=== PATIENT | male | born 1965 | race Caucasian/White ===

== ENCOUNTER 2020-06-21 13:20 | Emergency (ER) | payer MEDICAID, SELFPAY ==
[2020-06-21 13:34] VITALS: BP 138/84; PULSE 92; RESP 18; TEMP 36.6; O2SAT 98; BMI 36.2
--- NOTE | 2020-06-21 16:22 | CT_ITS ---
EXAMINATION: CT BRAIN WITHOUT CONTRAST. CLINICAL INFORMATION: Dizziness with history of CVA. COMPARISON: CT brain and CTA head and neck 04/20/2019 TECHNIQUE: 5 mm thin thin axial and reformatted 2 mm thin sagittal and coronal images of brain were obtained. DLP 756. FINDINGS: There is no acute intra-axial, extra-axial bleed, masses or midline shift. There is encephalomalacia/old infarct left posterior centrum semiovale and insular cortex left temporal lobe and left external capsule. There is no acute infarct in evolution at this time. 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 Both lateral ventricles are moderately enlarged as well with moderate prominence of cortical sulci consistent with volume loss. A prominent cisterna magna is noted in the posterior fossa. Bone windows reveal no calvarial abnormality. No scalp soft tissue abnormality seen. Bilateral paranasal sinuses and mastoid air cells are well-aerated. CT/CT head/brain wo con IMPRESSION: No acute intracranial bleed or infarct. Old left insular and left posterior centrum semiovale infarct/encephalomalacia. Age-appropriate atrophy.
--- NOTE | 2020-06-21 16:34 | ECG_ITS ---
Test Reason : DIZZINESS Blood Pressure : / mmHG Vent. Rate : 076 BPM Atrial Rate : 076 BPM P-R Int : 174 ms QRS Dur : 084 ms QT Int : 376 ms P-R-T Axes : 029 -01 046 degrees QTc Int : 423 ms Artifact in tracing Normal sinus rhythm cannot assess inferior leads Otherwise unremarkable When compared with ECG of 20-APR-2019 13:32, No significant changes seen Referred By: Jet Pham Electronically Signed By:BLOSSOM RUIZ
--- NOTE | 2020-06-21 16:35 | ED_ITS ---
HPI - Dizziness General Chief Complaint: Dizziness Stated Complaint: Dizziness Time Seen by Provider: 06/21/20 16:14 Source: patient and old records reviewed Mode of arrival: ambulatory Limitations: no limitations History of Present Illness HPI Narrative: Patient with history of CVA in 2019 on baby aspirin noticed omi terrazas onset of vertigo since yesterday evening lasted for few minutes got better again today restarted having dizziness also has tinnitus on his left side no focal weakness no tremors no headache seen his primary care doctor was started on meclizine MD elicited complaint: dizziness Pertinent past history: stroke Onset (ago): day(s) (1) Timing: sudden onset Severity: mild Description: sense of movement, room spinning and off-balance History of similar symptoms: No Exacerbating factors: movement/ambulation and change in body position Relieving factors: remaining still Associated symptoms: denies other symptoms Related Data Allergies Allergy/AdvReac Type Severity Reaction Status Date / Time No Known Allergies Allergy Unverified 03/28/20 15:14 [No Known Allergies*] Review of Systems Review of Systems: REVIEW OF SYSTEMS: Pertinent positives and negatives are stated above in the history. GEN: no fevers, chills, fatigue HEENT: no nasal congestion, sore throat, ear pain NEURO: no headache, dizziness, focal weakness PULM: no cough, shortness of breath CV: no chest pain, palpitations, LE edema ABD: no abdominal pain, nausea, vomiting, diarrhea : no dysuria, urgency, frequency SKIN: no rash ROS otherwise negative x 10 PMFSH Past Medical History Medical History CVA (cerebral vascular accident) Surgical History History of CEA (carotid endarterectomy) Social History Social History Alcohol intake: current Alcohol intake frequency: a few times a month Smoking Status: Never smoker Use of substances other than those prescribed or required for medical reasons: No Advance Directives: No Advance Directives Information Provided: Yes Physical Exam Vital Signs: Vital Signs: Last Vital Signs Temp 98 F 06/21/20 13:34 Pulse 82 06/21/20 16:45 Resp 16 06/21/20 16:45 BP 127/83 06/21/20 16:45 Pulse Ox 98 06/21/20 16:45 Body Mass Index 36.2 VITAL SIGNS: Reviewed. GENERAL: Well developed, well nourished, in no acute distress. HEAD: Normocephalic/atraumatic, EYES: PERRLA No pallor/icterus noted OROPHARYNX: Oral mucosa moist no oral lesions NECK: Supple, no adenopathy LUNGS: Normal breath sounds. No adventitious sounds or accessory muscle use CARDIOVASCULAR: Regular rate and rhythm without noted murmurs, no JVD or lower extremity edema. ABDOMEN: Soft, non-tender, non-distended with normal bowel sounds. No rigidity. No guarding. No palpable masses or hernias noted MUSCULOSKELETAL: No tenderness, deformities, EXTREMITIES: No cyanosis or edema. SKIN: no rashes, ulcerations, jaundice, pallor, or petechiae NEUROLOGIC: Alert and oriented x 3. Strength and sensation to light touch were grossly intact normal speech no nystagmus cerebellar signs are absent MDM - Dizziness MDM Narrative Medical decision making narrative: Patient feeling much better now ambulatory in the ER already on meclizine at home CT scan is negative clinically patient has peripheral vertigo which is benign. Will discharge with advised patient to continue meclizine follow with PCP Differential Diagnosis Differential diagnosis: Likely benign paroxysmal positional vertigo and vertebral basilar insufficiency Medical Records Attestation: I reviewed the patient's medical records. Lab Data Attestation: I reviewed the patient's lab results. Result diagrams: 06/21/20 16:54 06/21/20 16:54 Labs: Lab Results 06/21/20 06/21/20 06/21/20 Range/Units 16:54 16:54 16:54 WBC 10.0 (4.8-10.8) X10*3/uL RBC 6.20 H (4.60-5.80) X10*6/uL Hgb 13.3 L (14.0-18.0) g/dl Hct 43.3 (42-52) % MCV 69.8 L (80-98) fL MCH 21.5 L (27.0-33.0) pg MCHC 30.7 L (31.0-36.0) g/dl RDW 16.3 H (11.0-16.0) % Plt Count 193 (160-400) X10*3/uL MPV 10.7 (9.4-12.4) fL Immature Gran % (Auto) 0.3 (0.0-0.4) % Neut % (Auto) 69.7 (45-73) % Lymph % (Auto) 21.1 (20-40) % Angelina % (Auto) 7.5 (2-11) % Eos % (Auto) 1.0 (0-4) % Baso % (Auto) 0.4 (0-2) % Lymph # (Auto) 2.1 (1.2-4.9) X10*3/uL Angelina # (Auto) 0.8 (0.1-1.2) X10*3/uL Eos # (Auto) 0.1 (0.0-0.4) X10*3/uL Baso # (Auto) 0.0 (0.0-0.2) X10*3/uL Abs Immat Gran (auto) 0.03 (0.00-0.03) X10*3/uL Absolute Neuts (auto) 6.9 (2.0-8.3) X10*3/uL Absolute Nucleated RBC 0.000 (0.0-0.012) X10*3/uL Nucleated RBC % (auto) 0.0 (0.0-0.2) /100WBC PT 13.2 H (10.8-13.0) SEC INR 1.1 (0.9-1.1) Sodium 140 (135-145) mmol/L Potassium 4.2 (3.3-5.1) mmol/l Chloride 107 (96-108) mmol/L Carbon Dioxide 25 (22-29) mmol/L Anion Gap 12 (12-20) BUN 16 (9-16) mg/dL Creatinine 0.99 (0.5-1.4) mg/dL Estim Creat Clear Calc 107.5 Estimated GFR > 60 Random Glucose 117 H (60-115) mg/dL Calcium 8.4 (8.4-10.2) mg/dL Troponin I High Sens (<3.5-35.0) ng/L 06/21/20 Range/Units 16:54 WBC (4.8-10.8) X10*3/uL RBC (4.60-5.80) X10*6/uL Hgb (14.0-18.0) g/dl Hct (42-52) % MCV (80-98) fL MCH (27.0-33.0) pg MCHC (31.0-36.0) g/dl RDW (11.0-16.0) % Plt Count (160-400) X10*3/uL MPV (9.4-12.4) fL Immature Gran % (Auto) (0.0-0.4) % Neut % (Auto) (45-73) % Lymph % (Auto) (20-40) % Angelina % (Auto) (2-11) % Eos % (Auto) (0-4) % Baso % (Auto) (0-2) % Lymph # (Auto) (1.2-4.9) X10*3/uL Angelina # (Auto) (0.1-1.2) X10*3/uL Eos # (Auto) (0.0-0.4) X10*3/uL Baso # (Auto) (0.0-0.2) X10*3/uL Abs Immat Gran (auto) (0.00-0.03) X10*3/uL Absolute Neuts (auto) (2.0-8.3) X10*3/uL Absolute Nucleated RBC (0.0-0.012) X10*3/uL Nucleated RBC % (auto) (0.0-0.2) /100WBC PT (10.8-13.0) SEC INR (0.9-1.1) Sodium (135-145) mmol/L Potassium (3.3-5.1) mmol/l Chloride (96-108) mmol/L Carbon Dioxide (22-29) mmol/L Anion Gap (12-20) BUN (9-16) mg/dL Creatinine (0.5-1.4) mg/dL Estim Creat Clear Calc Estimated GFR Random Glucose (60-115) mg/dL Calcium (8.4-10.2) mg/dL Troponin I High Sens < 3.5 (<3.5-35.0) ng/L ECG Data Attestation: I personally reviewed and interpreted this ECG as follows: Interpretation: Normal sinus rhythm ventricular rate 76 beats per minute normal axis normal intervals no acute ST T wave changes impression normal EKG Discharge Plan Discharge Clinical Impression: Benign paroxysmal positional vertigo Patient Disposition: Home, Self-Care Instructions: Benign Paroxysmal Positional Vertigo (ED) Additional Instructions: Cautions and care as advised. Continue meclizine 25 mg tablet 1 tablet every 8 hours as needed. Follow-up with PCP if not better Interventions: ED Discharge Assessment Last Done: 06/21/20 18:40 Discharge Date/Time: 06/21/20 18:30
[2020-06-21 16:40] VITALS: BP 135/86; PULSE 82
[2020-06-21 16:41] VITALS: BP 131/85; PULSE 95
[2020-06-21 16:42] VITALS: BP 127/83; PULSE 94
[2020-06-21 16:45] VITALS: BP 127/83; PULSE 82; RESP 16; O2SAT 98
[2020-06-21 17:00] LABS: Basophils Percent Auto 0.4 % (0-2); Eosinophils Absolute Auto 0.1 X10*3/uL (0.0-0.4); Hematocrit 43.3 % (42-52); Hemoglobin 13.3 g/dl (14.0-18.0); Imm Gran Abs Auto 0.03 X10*3/uL (0.00-0.03); Imm Gran Pct Auto 0.3 % (0.0-0.4); Lymphocytes Absolute Auto 2.1 X10*3/uL (1.2-4.9); Lymphocytes Percent Auto 21.1 % (20-40); Mean Corpuscular HGB Conc 30.7 g/dl (31.0-36.0); Mean Corpuscular Hemoglobin 21.5 pg (27.0-33.0); Mean Corpuscular Volume 69.8 fL (80-98); Mean Platelet Volume 10.7 fL (9.4-12.4); Monocytes Absolute Auto 0.8 X10*3/uL (0.1-1.2); Monocytes Percent Auto 7.5 % (2-11); Neutrophils Absolute Auto 6.9 X10*3/uL (2.0-8.3); Neutrophils Percent Auto 69.7 % (45-73); Platelet Count 193 X10*3/uL (160-400); Red Cell Distribution Width 16.3 % (11.0-16.0)
[2020-06-21 17:01] LABS: MANUAL DIFF FLAG NO
[2020-06-21 17:11] LABS: INTERNATIONAL NORM RATIO 1.1 (0.9-1.1); Prothrombin Time 13.2 SEC (10.8-13.0)
[2020-06-21 17:36] LABS: Troponin-I High Sensitivity < 3.5 ng/L (<3.5-35.0)
[2020-06-21 17:44] LABS: Anion Gap 12 (12-20); Blood Urea Nitrogen 16 mg/dL (9-16); Calcium 8.4 mg/dL (8.4-10.2); Carbon Dioxide 25 mmol/L (22-29); Chloride 107 mmol/L (96-108); Creatinine Clr Calc Pharmacy 107.5; Estimated Glomerular Filt Rate > 60; Glucose Random 117 mg/dL (60-115); Potassium 4.2 mmol/l (3.3-5.1); Sodium 140 mmol/L (135-145)
== END 2020-06-21 18:30 | disposition home or self-care (01) ==
PROVIDERS: Emergency Provider Internal Medicine; PCP Internal Medicine
DX: H81.13 Benign paroxysmal vertigo, bilateral (principal)
CPT/HCPCS: 36415; 70450; 80048; 84484; 85025; 85610; 93005; 99284

== ENCOUNTER 2020-09-06 08:30 | Outpatient (REF) | payer MEDICAID, SELFPAY ==
[2020-09-06 09:55] LABS: MANUAL DIFF FLAG NO
[2020-09-06 10:06] LABS: Basophils Percent Auto 0.5 % (0-2); Eosinophils Absolute Auto 0.1 X10*3/uL (0.0-0.4); Eosinophils Percent Auto 1.3 % (0-4); Hematocrit 44.7 % (42-52); Hemoglobin 13.5 g/dl (14.0-18.0); Imm Gran Abs Auto 0.02 X10*3/uL (0.00-0.03); Imm Gran Pct Auto 0.2 % (0.0-0.4); Lymphocytes Absolute Auto 1.9 X10*3/uL (1.2-4.9); Lymphocytes Percent Auto 22.8 % (20-40); Mean Corpuscular HGB Conc 30.2 g/dl (31.0-36.0); Mean Corpuscular Hemoglobin 21.4 pg (27.0-33.0); Mean Corpuscular Volume 70.7 fL (80-98); Monocytes Absolute Auto 0.6 X10*3/uL (0.1-1.2); Monocytes Percent Auto 7.4 % (2-11); Neutrophils Absolute Auto 5.7 X10*3/uL (2.0-8.3); Neutrophils Percent Auto 67.8 % (45-73); Platelet Count 180 X10*3/uL (160-400); Red Blood Count 6.32 X10*6/uL (4.60-5.80); Red Cell Distribution Width 15.6 % (11.0-16.0); White Blood Count 8.4 X10*3/uL (4.8-10.8)
[2020-09-06 10:37] LABS: Anion Gap 13 (12-20); Blood Urea Nitrogen 16 mg/dL (9-16); Calcium 9.2 mg/dL (8.4-10.2); Carbon Dioxide 27 mmol/L (22-29); Chloride 105 mmol/L (96-108); Cholesterol 123 mg/dL; Estimated Glomerular Filt Rate > 60; Glucose Random 116 mg/dL (60-115); HDL Cholesterol 40 mg/dL; LDL Cholesterol Calculated 67 mg/dl; Potassium 5.1 mmol/L (3.3-5.1); Sodium 140 mmol/L (135-145); Triglycerides 83 mg/dL
[2020-09-06 10:45] LABS: Glucose Urine UA NEG (NEG); Leukocyte Esterase Urine NEG (NEG); Nitrite Urine NEG (NEG); PH 6.5 (5.0-8.0); Specific Gravity - Urine 1.015 (1.005-1.025); Urine Blood NEG (NEG); Urine Ketones NEG (NEG); Urine Protein NEG (NEG-TRACE)
[2020-09-06 10:46] LABS: Appearance Urine CLEAR; Color Urine YELLOW
[2020-09-06 10:55] LABS: RBC Urine 0-2 /HPF (0); Squamous Epithelial Cell Urine 1+ /LPF; WBC Urine 0 /HPF (0-4)
[2020-09-06 11:06] LABS: Prostate Specific Antigen 0.53 ng/mL (<0.05-4.0)
== END 2020-09-06 08:31 | disposition home or self-care (01) ==
LOC: HO.LAB 08:30
PROVIDERS: PCP Internal Medicine; Visit Provider Internal Medicine
DX: E78.00 Pure hypercholesterolemia, unspecified (principal); I77.9 Disorder of arteries and arterioles, unspecified; R35.1 Nocturia; Z86.73 Personal history of transient ischemic attack (TIA), and cerebral infarction without residual deficits; Z12.5 Encounter for screening for malignant neoplasm of prostate
CPT/HCPCS: 36415; 80048; 80061; 81001; 84153; 85025; 87086

== ENCOUNTER 2021-03-31 14:13 | Outpatient (REF) | payer MEDICAID, SELFPAY ==
[2021-03-31 15:02] LABS: MANUAL DIFF FLAG NO
[2021-03-31 15:11] LABS: Basophils Percent Auto 0.3 % (0-2); Eosinophils Absolute Auto 0.2 X10*3/uL (0.0-0.4); Eosinophils Percent Auto 1.7 % (0-4); Hematocrit 40.4 % (42-52); Hemoglobin 12.5 g/dl (14.0-18.0); Imm Gran Abs Auto 0.05 X10*3/uL (0.00-0.03); Imm Gran Pct Auto 0.4 % (0.0-0.4); Lymphocytes Absolute Auto 1.9 X10*3/uL (1.2-4.9); Lymphocytes Percent Auto 16.6 % (20-40); Mean Corpuscular HGB Conc 30.9 g/dl (31.0-36.0); Mean Corpuscular Hemoglobin 21.7 pg (27.0-33.0); Mean Corpuscular Volume 70.3 fL (80-98); Mean Platelet Volume 11.2 fL (9.4-12.4); Monocytes Absolute Auto 0.9 X10*3/uL (0.1-1.2); Monocytes Percent Auto 7.7 % (2-11); Neutrophils Absolute Auto 8.4 X10*3/uL (2.0-8.3); Neutrophils Percent Auto 73.3 % (45-73); Platelet Count 198 X10*3/uL (160-400); Red Blood Count 5.75 X10*6/uL (4.60-5.80); Red Cell Distribution Width 17.1 % (11.0-16.0); White Blood Count 11.4 X10*3/uL (4.8-10.8)
[2021-03-31 15:20] LABS: INTERNATIONAL NORM RATIO 1.4 (0.9-1.1); Prothrombin Time 15.7 SEC (9.9-13.0)
[2021-03-31 15:35] LABS: Alanine Aminotransferase 25 U/L (0-40); Alkaline Phosphatase 84 U/L (39-117); Anion Gap 13 (12-20); Aspartate Amino Transferase 17 U/L (5-37); Bilirubin Total 0.9 mg/dL (0.0-1.0); Blood Urea Nitrogen 14 mg/dL (9-16); Calcium 9.7 mg/dL (8.4-10.2); Carbon Dioxide 25 mmol/L (22-29); Chloride 105 mmol/L (96-108); Estimated Glomerular Filt Rate > 60; Glucose Random 152 mg/dL (60-115); Potassium 4.2 mmol/L (3.3-5.1); Sodium 139 mmol/L (135-145); Total Protein 6.2 g/dL (6.5-8.0)
== END 2021-03-31 14:14 | disposition home or self-care (01) ==
LOC: HO.LAB 14:13
PROVIDERS: PCP Internal Medicine; Visit Provider Internal Medicine
DX: E78.00 Pure hypercholesterolemia, unspecified (principal); Z86.73 Personal history of transient ischemic attack (TIA), and cerebral infarction without residual deficits
CPT/HCPCS: 36415; 80053; 85025; 85610

== ENCOUNTER 2021-07-01 08:03 | Outpatient (REF) | payer MEDICAID, SELFPAY ==
[2021-07-01 10:07] LABS: MANUAL DIFF FLAG NO
[2021-07-01 10:15] LABS: Basophils Percent Auto 0.4 % (0-2); Eosinophils Absolute Auto 0.4 X10*3/uL (0.0-0.4); Eosinophils Percent Auto 3.9 % (0-4); Hematocrit 44.2 % (42.0-52.0); Hemoglobin 13.6 g/dl (14.0-18.0); Imm Gran Abs Auto 0.03 X10*3/uL (0.00-0.03); Imm Gran Pct Auto 0.3 % (0.0-0.4); Lymphocytes Absolute Auto 1.9 X10*3/uL (1.2-4.9); Mean Corpuscular HGB Conc 30.8 g/dl (31.0-36.0); Mean Corpuscular Hemoglobin 21.6 pg (27.0-33.0); Mean Corpuscular Volume 70.3 fL (80.0-98.0); Mean Platelet Volume 11.2 fL (9.4-12.4); Monocytes Absolute Auto 0.7 X10*3/uL (0.1-1.2); Monocytes Percent Auto 7.4 % (2-11); Neutrophils Absolute Auto 6.8 x10*3/uL (2.0-8.3); Platelet Count 219 X10*3/uL (160-400); Red Blood Count 6.29 X10*6/uL (4.60-5.80); Red Cell Distribution Width 16.9 % (11.0-16.0); White Blood Count 9.8 X10*3/uL (4.8-10.8)
[2021-07-01 10:19] LABS: INTERNATIONAL NORM RATIO 1.2 (0.9-1.1); Prothrombin Time 14.2 SEC (9.9-13.0)
[2021-07-01 10:29] LABS: Alanine Aminotransferase 31 U/L (0-40); Albumin Level 4.1 g/dL (3.5-5.0); Alkaline Phosphatase 85 U/L (39-117); Anion Gap 14 (12-20); Aspartate Amino Transferase 18 U/L (5-37); Blood Urea Nitrogen 12 mg/dL (9-16); Calcium 9.5 mg/dL (8.4-10.2); Carbon Dioxide 26 mmol/L (22-29); Chloride 104 mmol/L (96-108); Estimated Glomerular Filt Rate > 60; Glucose Random 167 mg/dL (60-115); Iron 208 mcg/dL (45-160); Percent Iron Saturation 86 % (15-50); Potassium 4.3 mmol/L (3.3-5.1); Sodium 140 mmol/L (135-145); Total Iron Binding Capacity 241 mcg/dL (228-428); Total Protein 6.8 g/dL (6.5-8.0); Unsaturated Iron Binding 33 ug/dL
== END 2021-07-01 08:04 | disposition home or self-care (01) ==
LOC: HO.10HDL 08:03
PROVIDERS: Visit Provider Internal Medicine
DX: D64.9 Anemia, unspecified (principal); N40.1 Benign prostatic hyperplasia with lower urinary tract symptoms; N13.8 Other obstructive and reflux uropathy; E78.00 Pure hypercholesterolemia, unspecified; I77.9 Disorder of arteries and arterioles, unspecified; Z86.73 Personal history of transient ischemic attack (TIA), and cerebral infarction without residual deficits
CPT/HCPCS: 36415; 80053; 83540; 85025; 85610

== ENCOUNTER 2021-09-29 08:05 | Outpatient (REF) | payer MEDICARE, MEDICAID, SELFPAY ==
[2021-09-29 10:17] LABS: MANUAL DIFF FLAG NO
[2021-09-29 10:27] LABS: Basophils Percent Auto 0.3 % (0-2); Eosinophils Absolute Auto 0.2 X10*3/uL (0.0-0.4); Eosinophils Percent Auto 1.8 % (0-4); Hematocrit 42.9 % (42.0-52.0); Imm Gran Abs Auto 0.03 X10*3/uL (0.00-0.03); Imm Gran Pct Auto 0.3 % (0.0-0.4); Lymphocytes Absolute Auto 1.9 X10*3/uL (1.2-4.9); Lymphocytes Percent Auto 20.9 % (20-40); Mean Corpuscular HGB Conc 30.3 g/dl (31.0-36.0); Mean Corpuscular Hemoglobin 21.3 pg (27.0-33.0); Mean Corpuscular Volume 70.2 fL (80.0-98.0); Monocytes Absolute Auto 0.6 X10*3/uL (0.1-1.2); Monocytes Percent Auto 6.8 % (2-11); Neutrophils Absolute Auto 6.5 x10*3/uL (2.0-8.3); Neutrophils Percent Auto 69.9 % (45-73); Platelet Count 203 X10*3/uL (160-400); Red Blood Count 6.11 X10*6/uL (4.60-5.80); Red Cell Distribution Width 15.5 % (11.0-16.0); White Blood Count 9.2 X10*3/uL (4.8-10.8)
[2021-09-29 10:31] LABS: INTERNATIONAL NORM RATIO 1.3 (0.9-1.1); Prothrombin Time 15.3 SEC (9.9-13.0)
[2021-09-29 10:35] LABS: Estimated Average Glucose 131 mg/dL; Hemoglobin A1c % 6.2 %
[2021-09-29 11:00] LABS: Anion Gap 13 (12-20); Blood Urea Nitrogen 13 mg/dL (9-16); Calcium 9.2 mg/dL (8.4-10.2); Carbon Dioxide 25 mmol/L (22-29); Chloride 102 mmol/L (96-108); Estimated Glomerular Filt Rate > 60; Glucose Random 180 mg/dL (60-115); Iron 145 mcg/dL (45-160); Percent Iron Saturation 62 % (15-50); Potassium 4.4 mmol/L (3.3-5.1); Sodium 136 mmol/L (135-145); Total Iron Binding Capacity 234 mcg/dL (228-428); Unsaturated Iron Binding 89 ug/dL
== END 2021-09-29 08:06 | disposition home or self-care (01) ==
LOC: HO.10HDL 08:05
PROVIDERS: Visit Provider Internal Medicine
DX: R73.03 Prediabetes (principal); D64.9 Anemia, unspecified; Z86.73 Personal history of transient ischemic attack (TIA), and cerebral infarction without residual deficits
CPT/HCPCS: 36415; 80048; 83036; 83540; 85025; 85610

== ENCOUNTER 2021-12-26 10:55 | Outpatient (REF) | payer MEDICARE, MEDICAID, SELFPAY ==
[2021-12-26 13:34] LABS: Basophils Absolute Auto 0.1 X10*3/uL (0.0-0.2); Basophils Percent Auto 0.6 % (0-2); Eosinophils Absolute Auto 0.1 X10*3/uL (0.0-0.4); Eosinophils Percent Auto 1.4 % (0-4); Hematocrit 43.6 % (42.0-52.0); Hemoglobin 12.9 g/dl (14.0-18.0); Imm Gran Abs Auto 0.03 X10*3/uL (0.00-0.03); Imm Gran Pct Auto 0.3 % (0.0-0.4); Lymphocytes Absolute Auto 1.6 X10*3/uL (1.2-4.9); Lymphocytes Percent Auto 18.7 % (20-40); MANUAL DIFF FLAG SCAN; Mean Corpuscular HGB Conc 29.6 g/dl (31.0-36.0); Mean Corpuscular Hemoglobin 21.1 pg (27.0-33.0); Mean Corpuscular Volume 71.2 fL (80.0-98.0); Monocytes Absolute Auto 0.6 X10*3/uL (0.1-1.2); Monocytes Percent Auto 6.8 % (2-11); Neutrophils Absolute Auto 6.3 x10*3/uL (2.0-8.3); Neutrophils Percent Auto 72.2 % (45-73); PLT CLUMP 1; Red Blood Count 6.12 X10*6/uL (4.60-5.80); Red Cell Distribution Width 16.9 % (11.0-16.0); SCAN SMEAR FLAG 1
[2021-12-26 13:37] LABS: INTERNATIONAL NORM RATIO 1.1 (0.9-1.1); Prothrombin Time 12.7 SEC (9.9-13.0)
[2021-12-26 13:49] LABS: Estimated Average Glucose 126 mg/dL
[2021-12-26 13:57] LABS: Alanine Aminotransferase 28 U/L (0-40); Albumin Level 4.1 g/dL (3.5-5.0); Alkaline Phosphatase 73 U/L (39-117); Anion Gap 11 (12-20); Aspartate Amino Transferase 17 U/L (5-37); Bilirubin Total 0.9 mg/dL (0.0-1.0); Blood Urea Nitrogen 17 mg/dL (9-16); Calcium 8.9 mg/dL (8.4-10.2); Carbon Dioxide 26 mmol/L (22-29); Chloride 106 mmol/L (96-108); Estimated Glomerular Filt Rate > 60; Glucose Random 113 mg/dL (60-115); Sodium 138 mmol/L (135-145); Total Protein 6.4 g/dL (6.5-8.0)
[2021-12-26 13:59] LABS: Mean Platelet Volume 11.6 fL (9.4-12.4); Platelet Count 190 X10*3/uL (160-400); White Blood Count 8.7 X10*3/uL (4.8-10.8)
[2021-12-26 14:00] LABS: SLIDE REVIEW VERIFIED
== END 2021-12-26 10:56 | disposition home or self-care (01) ==
LOC: HO.10HDL 10:55
PROVIDERS: Visit Provider Internal Medicine
DX: E78.00 Pure hypercholesterolemia, unspecified (principal); R73.03 Prediabetes; Z86.73 Personal history of transient ischemic attack (TIA), and cerebral infarction without residual deficits
CPT/HCPCS: 36415; 80053; 83036; 85025; 85610

== ENCOUNTER 2022-03-25 10:25 | Outpatient (REF) | payer MEDICARE, MEDICAID, SELFPAY ==
[2022-03-25 13:46] LABS: MANUAL DIFF FLAG NO
[2022-03-25 14:03] LABS: Basophils Percent Auto 0.4 % (0-2); Eosinophils Absolute Auto 0.1 X10*3/uL (0.0-0.4); Eosinophils Percent Auto 0.8 % (0-4); Hematocrit 42.6 % (42.0-52.0); Imm Gran Abs Auto 0.05 X10*3/uL (0.00-0.03); Imm Gran Pct Auto 0.5 % (0.0-0.4); Lymphocytes Absolute Auto 1.6 X10*3/uL (1.2-4.9); Lymphocytes Percent Auto 16.7 % (20-40); Mean Corpuscular HGB Conc 30.5 g/dl (31.0-36.0); Mean Corpuscular Hemoglobin 21.2 pg (27.0-33.0); Mean Corpuscular Volume 69.5 fL (80.0-98.0); Mean Platelet Volume 10.8 fL (9.4-12.4); Monocytes Absolute Auto 0.8 X10*3/uL (0.1-1.2); Monocytes Percent Auto 8.1 % (2-11); Neutrophils Absolute Auto 6.9 x10*3/uL (2.0-8.3); Neutrophils Percent Auto 73.5 % (45-73); Platelet Count 169 X10*3/uL (160-400); Red Blood Count 6.13 X10*6/uL (4.60-5.80); Red Cell Distribution Width 16.1 % (11.0-16.0); White Blood Count 9.4 X10*3/uL (4.8-10.8)
[2022-03-25 14:39] LABS: Alanine Aminotransferase 34 U/L (0-40); Albumin Level 4.2 g/dL (3.5-5.0); Alkaline Phosphatase 81 U/L (39-117); Anion Gap 15 (12-20); Aspartate Amino Transferase 19 U/L (5-37); Bilirubin Total 0.6 mg/dL (0.0-1.0); Blood Urea Nitrogen 16 mg/dL (9-16); Calcium 9.1 mg/dL (8.4-10.2); Carbon Dioxide 24 mmol/L (22-29); Chloride 104 mmol/L (96-108); Cholesterol 137 mg/dL; Estimated Glomerular Filt Rate > 60; Glucose Fasting 137 mg/dL (60-99); HDL Cholesterol 39 mg/dL; LDL Cholesterol Calculated 65 mg/dl; Potassium 4.5 mmol/L (3.3-5.1); Prostate Specific Antigen Scr 0.67 ng/mL (<0.05-4.0); Sodium 138 mmol/L (135-145); Total Protein 6.6 g/dL (6.5-8.0); Triglycerides 169 mg/dL
[2022-03-25 20:01] LABS: INTERNATIONAL NORM RATIO 1.1 (0.9-1.1); Prothrombin Time 12.8 SEC (10.0-13.1)
== END 2022-03-25 10:26 | disposition home or self-care (01) ==
LOC: HO.10HDL 10:25
PROVIDERS: Visit Provider Internal Medicine
DX: E78.00 Pure hypercholesterolemia, unspecified (principal); I77.9 Disorder of arteries and arterioles, unspecified; Z86.73 Personal history of transient ischemic attack (TIA), and cerebral infarction without residual deficits; Z12.5 Encounter for screening for malignant neoplasm of prostate
CPT/HCPCS: 36415; 80053; 80061; 84153; 85025; 85610

== ENCOUNTER 2022-06-24 11:07 | Outpatient (REF) | payer MEDICARE, MEDICAID, SELFPAY ==
[2022-06-24 13:54] LABS: MANUAL DIFF FLAG NO
[2022-06-24 14:02] LABS: Basophils Percent Auto 0.4 % (0-2); Eosinophils Absolute Auto 0.1 X10*3/uL (0.0-0.4); Eosinophils Percent Auto 0.6 % (0-4); Hematocrit 43.6 % (42.0-52.0); Hemoglobin 13.2 g/dl (14.0-18.0); Imm Gran Abs Auto 0.04 X10*3/uL (0.00-0.03); Imm Gran Pct Auto 0.4 % (0.0-0.4); Lymphocytes Absolute Auto 1.7 X10*3/uL (1.2-4.9); Lymphocytes Percent Auto 17.3 % (20-40); Mean Corpuscular HGB Conc 30.3 g/dl (31.0-36.0); Mean Corpuscular Hemoglobin 21.4 pg (27.0-33.0); Mean Corpuscular Volume 70.8 fL (80.0-98.0); Mean Platelet Volume 11.5 fL (9.4-12.4); Monocytes Absolute Auto 0.7 X10*3/uL (0.1-1.2); Monocytes Percent Auto 7.7 % (2-11); Neutrophils Absolute Auto 7.1 x10*3/uL (2.0-8.3); Neutrophils Percent Auto 73.6 % (45-73); Platelet Count 208 X10*3/uL (160-400); Red Blood Count 6.16 X10*6/uL (4.60-5.80); White Blood Count 9.6 X10*3/uL (4.8-10.8)
[2022-06-24 14:04] LABS: INTERNATIONAL NORM RATIO 1.2 (0.9-1.1); Prothrombin Time 14.3 SEC (10.0-13.1)
== END 2022-06-24 11:08 | disposition home or self-care (01) ==
LOC: HO.10HDL 11:07
PROVIDERS: Visit Provider Internal Medicine
DX: E78.00 Pure hypercholesterolemia, unspecified (principal); Z86.73 Personal history of transient ischemic attack (TIA), and cerebral infarction without residual deficits; Z79.01 Long term (current) use of anticoagulants
CPT/HCPCS: 36415; 85025; 85610

== ENCOUNTER 2022-10-12 08:22 | Outpatient (REF) | payer MEDICARE, MEDICAID, SELFPAY ==
[2022-10-12 10:28] LABS: MANUAL DIFF FLAG NO
[2022-10-12 10:35] LABS: Basophils Percent Auto 0.4 % (0-2); Eosinophils Absolute Auto 0.1 X10*3/uL (0.0-0.4); Eosinophils Percent Auto 1.6 % (0-4); Hematocrit 43.4 % (42.0-52.0); Hemoglobin 13.3 g/dl (14.0-18.0); Imm Gran Abs Auto 0.02 X10*3/uL (0.00-0.03); Imm Gran Pct Auto 0.2 % (0.0-0.4); Lymphocytes Absolute Auto 1.8 X10*3/uL (1.2-4.9); Lymphocytes Percent Auto 20.5 % (20-40); Mean Corpuscular HGB Conc 30.6 g/dl (31.0-36.0); Mean Corpuscular Hemoglobin 20.9 pg (27.0-33.0); Mean Corpuscular Volume 68.2 fL (80.0-98.0); Mean Platelet Volume 11.2 fL (9.4-12.4); Monocytes Absolute Auto 0.5 X10*3/uL (0.1-1.2); Monocytes Percent Auto 6.2 % (2-11); Neutrophils Absolute Auto 6.1 x10*3/uL (2.0-8.3); Neutrophils Percent Auto 71.1 % (45-73); Platelet Count 185 X10*3/uL (160-400); Red Blood Count 6.36 X10*6/uL (4.60-5.80); Red Cell Distribution Width 15.9 % (11.0-16.0); White Blood Count 8.6 X10*3/uL (4.8-10.8)
[2022-10-12 10:37] LABS: INTERNATIONAL NORM RATIO 1.2 (0.9-1.1); Prothrombin Time 13.6 SEC (10.0-13.1)
[2022-10-12 11:03] LABS: Anion Gap 14 (12-20); Blood Urea Nitrogen 14 mg/dL (9-16); Calcium 8.9 mg/dL (8.4-10.2); Carbon Dioxide 21 mmol/L (22-29); Chloride 106 mmol/L (96-108); Estimated Glomerular Filt Rate > 60; Glucose Random 200 mg/dL (60-115); Potassium 4.5 mmol/L (3.3-5.1); Sodium 136 mmol/L (135-145)
== END 2022-10-12 08:23 | disposition home or self-care (01) ==
LOC: HO.10HDL 08:22
PROVIDERS: Visit Provider Internal Medicine
DX: Z86.73 Personal history of transient ischemic attack (TIA), and cerebral infarction without residual deficits (principal); Z79.01 Long term (current) use of anticoagulants
CPT/HCPCS: 36415; 80048; 85025; 85610

== ENCOUNTER 2022-10-15 08:43 | Outpatient (REF) | payer MEDICARE, MEDICAID, SELFPAY ==
[2022-10-15 10:45] LABS: INTERNATIONAL NORM RATIO 1.2 (0.9-1.1); Prothrombin Time 13.6 SEC (10.0-13.1)
[2022-10-15 10:50] LABS: Estimated Average Glucose 134 mg/dL; Hemoglobin A1c % 6.3 %
[2022-10-15 10:57] LABS: Anion Gap 11 (12-20); Blood Urea Nitrogen 15 mg/dL (9-16); Calcium 9.2 mg/dL (8.4-10.2); Carbon Dioxide 28 mmol/L (22-29); Chloride 106 mmol/L (96-108); Estimated Glomerular Filt Rate > 60; Glucose Random 132 mg/dL (60-115); Potassium 4.7 mmol/L (3.3-5.1); Sodium 140 mmol/L (135-145)
== END 2022-10-15 08:44 | disposition home or self-care (01) ==
LOC: HO.10HDL 08:43
PROVIDERS: Visit Provider Internal Medicine
DX: R73.03 Prediabetes (principal); I77.9 Disorder of arteries and arterioles, unspecified; Z86.73 Personal history of transient ischemic attack (TIA), and cerebral infarction without residual deficits
CPT/HCPCS: 36415; 80048; 83036; 85610

== ENCOUNTER 2023-04-13 09:07 | Outpatient (REF) | payer MEDICARE, MEDICAID, SELFPAY ==
[2023-04-13 11:03] LABS: MANUAL DIFF FLAG NO
[2023-04-13 11:05] LABS: Basophils Percent Auto 0.4 % (0-2); Eosinophils Absolute Auto 0.1 X10*3/uL (0.0-0.4); Eosinophils Percent Auto 1.4 % (0-4); Hematocrit 41.7 % (42.0-52.0); Hemoglobin 12.5 g/dl (14.0-18.0); Imm Gran Abs Auto 0.02 X10*3/uL (0.00-0.03); Imm Gran Pct Auto 0.3 % (0.0-0.4); Lymphocytes Absolute Auto 1.8 X10*3/uL (1.2-4.9); Lymphocytes Percent Auto 23.7 % (20-40); Mean Corpuscular Volume 70.1 fL (80.0-98.0); Mean Platelet Volume 10.9 fL (9.4-12.4); Monocytes Absolute Auto 0.6 X10*3/uL (0.1-1.2); Monocytes Percent Auto 8.1 % (2-11); Neutrophils Absolute Auto 4.9 x10*3/uL (2.0-8.3); Neutrophils Percent Auto 66.1 % (45-73); Platelet Count 167 X10*3/uL (160-400); Red Blood Count 5.95 X10*6/uL (4.60-5.80); Red Cell Distribution Width 15.8 % (11.0-16.0); White Blood Count 7.4 X10*3/uL (4.8-10.8)
[2023-04-13 11:10] LABS: INTERNATIONAL NORM RATIO 1.3 (0.9-1.1); Prothrombin Time 16.3 SEC (11.1-13.3)
[2023-04-13 11:27] LABS: Estimated Average Glucose 128 mg/dL; Hemoglobin A1C 122.0575 umol/L; Hemoglobin A1c % 6.1 % (<6.0)
[2023-04-13 11:41] LABS: Alanine Aminotransferase 24 U/L (0-40); Albumin Level 3.9 g/dL (3.5-5.0); Alkaline Phosphatase 80 U/L (39-117); Anion Gap 11 (12-20); Aspartate Amino Transferase 21 U/L (5-37); Bilirubin Total 0.7 mg/dL (0.0-1.0); Blood Urea Nitrogen 18 mg/dL (9-16); Carbon Dioxide 24 mmol/L (22-29); Chloride 111 mmol/L (96-108); Cholesterol 117 mg/dL (<200); Estimated Glomerular Filt Rate > 60; Glucose Fasting 134 mg/dL (60-99); HDL Cholesterol 38 mg/dL (>40); LDL Cholesterol Calculated 66 mg/dL (<100); Potassium 4.3 mmol/L (3.3-5.1); Sodium 142 mmol/L (135-145); Total Protein 6.4 g/dL (6.5-8.0); Triglycerides 68 mg/dL (<150)
[2023-04-13 11:54] LABS: Prostate Specific Antigen Scr 0.55 ng/mL (<0.05-4.0)
== END 2023-04-13 09:08 | disposition home or self-care (01) ==
LOC: HO.10HDL 09:07
PROVIDERS: Visit Provider Internal Medicine
DX: E78.00 Pure hypercholesterolemia, unspecified (principal); E11.9 Type 2 diabetes mellitus without complications; R35.1 Nocturia; I77.9 Disorder of arteries and arterioles, unspecified; Z86.73 Personal history of transient ischemic attack (TIA), and cerebral infarction without residual deficits; Z12.5 Encounter for screening for malignant neoplasm of prostate
CPT/HCPCS: 36415; 80053; 80061; 83036; 84153; 85025; 85610

== ENCOUNTER 2023-04-22 14:22 | Emergency (ER) | payer MEDICARE, MEDICAID, SELFPAY ==
[2023-04-22 15:23] VITALS: BP 137/92; PULSE 101; RESP 18; TEMP 36.8; O2SAT 96; BMI 38.8
--- NOTE | 2023-04-22 15:25 | ED.GENADULT ---
HPI - General Adult General Chief complaint: Ear Problems Stated complaint: severe L ear infection Time Seen by Provider: 04/22/23 15:25 Source: patient, RN notes reviewed and old records reviewed Mode of arrival: ambulatory Limitations: no limitations History of Present Illness HPI narrative: 58-year-old male presents for evaluation of left ear pain. Patient reports 04/20 pain His pain started 2 days ago He reports that 2 weeks ago his primary doctor flushed his left ears Denies any drainage from the ear He did not stick anything in the ear He reports that he can feel a ?fullness in the ear. ? Related Data Previous Rx's Medication Instructions Recorded [id number]-IL-[id number] 3.3 4 drp otic (ear) left QID 7 days 04/22/23 mg-3 mg-10 mg-0.5 mg/mL ear #10 mL drops,susp (Cortisporin-TC) Allergies Allergy/AdvReac Type Severity Reaction Status Date / Time No Known Allergies Allergy Unverified 03/28/20 15:14 [No Known Allergies*] Review of Systems Constitutional: Constitutional: Denies chills and Denies fever(s) ENT: Reports otalgia PMFSH Past Medical History Medical History CVA (cerebral vascular accident) Surgical History History of CEA (carotid endarterectomy) Social History Social History Alcohol intake: current Alcohol intake frequency: a few times a month Physical Exam ED Const General: healthy appearing, comfortable, no acute distress, alert and awake Nutritional Appearance: well nourished Orientation/consciousness: patient oriented x3 HENMT Other: Left external ear canal edematous with whitish drainage. He has tenderness of manipulation of the tragus and the pinna on the left. No mastoid tenderness. No postauricular edema Head: Yes normocephalic and Yes atraumatic Ears: TM's normal bilaterally and TM normal on the right Eyes Eyelids: Yes eyelids normal Conjunctivae: conjunctivae normal Sclerae: sclerae normal Corneas: corneas normal Pupils: Equal, round and reactive pupils present EOM: EOMs intact bilaterally Neck Neck: Yes full ROM Resp Effort & Inspection: normal respiratory effort, able to speak in complete sentences and not labored Skin General skin exam: no rashes or lesions noted and elasticity normal Neuro General: patient oriented x3 Cranial nerves: Yes Equal, round and reactive pupils present and Yes Bilaterally intact EOM present Cognition (Neuro): normal cognition Extrem Other: Moving all extremities well without any obvious deformities Medical Decision Making Medical Decision Making MDM Narrative: Patient has acute left otitis externa on exam, he will be treated with Cortisporin drops. There are no signs of mastoiditis or malignant otitis externa Differential Diagnosis Differential Diagnoses: The differential diagnosis associated with the presentation includes Your infection Otitis media Otitis externa Mastoiditis Discharge Plan Discharge Clinical Impression: Otitis externa Qualifiers: Chronicity: acute Laterality: left Patient Disposition: Home, Self-Care Instructions: Otitis Externa (ED) Additional Instructions: Use the Cortisporin drops as directed Do not stick anything else in your ears Follow-up with primary doctor Prescriptions: New Cortisporin-TC 3.3-3-10-0.5 mg/mL drops,suspension 4 drp otic (ear) left QID 7 Days Qty: 10 0RF
== END 2023-04-22 15:40 | disposition home or self-care (01) ==
PROVIDERS: Emergency Provider Emergency Medicine; PCP Internal Medicine
DX: H60.502 Unspecified acute noninfective otitis externa, left ear (principal); H92.02 Otalgia, left ear
CPT/HCPCS: 99282; 99283

== ENCOUNTER 2023-08-31 09:20 | Outpatient (REF) | payer MEDICARE, MEDICAID, SELFPAY ==
[2023-08-31 10:51] LABS: MANUAL DIFF FLAG NO
[2023-08-31 11:02] LABS: Basophils Percent Auto 0.3 % (0-2); Eosinophils Absolute Auto 0.1 X10*3/uL (0.0-0.4); Eosinophils Percent Auto 0.9 % (0-4); Hematocrit 43.2 % (42.0-52.0); Hemoglobin 13.3 g/dl (14.0-18.0); Imm Gran Abs Auto 0.02 X10*3/uL (0.00-0.03); Imm Gran Pct Auto 0.2 % (0.0-0.4); Lymphocytes Absolute Auto 1.9 X10*3/uL (1.2-4.9); Lymphocytes Percent Auto 21.2 % (20-40); Mean Corpuscular HGB Conc 30.8 g/dl (31.0-36.0); Mean Corpuscular Hemoglobin 21.1 pg (27.0-33.0); Mean Corpuscular Volume 68.6 fL (80.0-98.0); Mean Platelet Volume 10.5 fL (9.4-12.4); Monocytes Absolute Auto 0.7 X10*3/uL (0.1-1.2); Monocytes Percent Auto 8.1 % (2-11); Neutrophils Absolute Auto 6.4 x10*3/uL (2.0-8.3); Neutrophils Percent Auto 69.3 % (45-73); Platelet Count 186 X10*3/uL (160-400); Red Cell Distribution Width 17.1 % (11.0-16.0); White Blood Count 9.2 X10*3/uL (4.8-10.8)
[2023-08-31 11:03] LABS: Estimated Average Glucose 123 mg/dL; Hemoglobin A1c % 5.9 % (<6.0)
[2023-08-31 11:16] LABS: Alanine Aminotransferase 25 U/L (0-40); Albumin Level 4.2 g/dL (3.5-5.0); Alkaline Phosphatase 88 U/L (39-117); Anion Gap 13 (12-20); Aspartate Amino Transferase 16 U/L (5-37); Bilirubin Total 1.3 mg/dL (0.0-1.0); Blood Urea Nitrogen 14 mg/dL (9-16); Calcium 8.9 mg/dL (8.4-10.2); Carbon Dioxide 23 mmol/L (22-29); Chloride 105 mmol/L (96-108); Estimated Glomerular Filt Rate > 60; Glucose Random 130 mg/dL (60-115); Iron 122 mcg/dL (45-160); Percent Iron Saturation 54 % (15-50); Potassium 3.9 mmol/L (3.3-5.1); Sodium 137 mmol/L (135-145); Total Iron Binding Capacity 224 mcg/dL (228-428); Unsaturated Iron Binding 102 ug/dL
== END 2023-08-31 09:21 | disposition home or self-care (01) ==
LOC: HO.10HDL 09:20
PROVIDERS: Visit Provider Internal Medicine
DX: D64.9 Anemia, unspecified (principal); R73.03 Prediabetes
CPT/HCPCS: 36415; 80053; 83036; 83540; 85025

== ENCOUNTER 2023-10-01 11:09 | Outpatient (REF) | payer MEDICARE, MEDICAID, SELFPAY ==
[2023-10-01 12:41] LABS: MANUAL DIFF FLAG NO
[2023-10-01 12:47] LABS: Basophils Percent Auto 0.4 % (0-2); Eosinophils Absolute Auto 0.1 X10*3/uL (0.0-0.4); Eosinophils Percent Auto 0.5 % (0-4); Hematocrit 42.6 % (42.0-52.0); Hemoglobin 13.6 g/dl (14.0-18.0); Imm Gran Abs Auto 0.09 X10*3/uL (0.00-0.03); Imm Gran Pct Auto 0.9 % (0.0-0.4); Lymphocytes Absolute Auto 1.7 X10*3/uL (1.2-4.9); Lymphocytes Percent Auto 17.3 % (20-40); Mean Corpuscular HGB Conc 31.9 g/dl (31.0-36.0); Mean Corpuscular Hemoglobin 21.9 pg (27.0-33.0); Mean Corpuscular Volume 68.5 fL (80.0-98.0); Mean Platelet Volume 10.6 fL (9.4-12.4); Monocytes Absolute Auto 0.7 X10*3/uL (0.1-1.2); Monocytes Percent Auto 7.5 % (2-11); Neutrophils Absolute Auto 7.2 x10*3/uL (2.0-8.3); Neutrophils Percent Auto 73.4 % (45-73); Platelet Count 180 X10*3/uL (160-400); Red Blood Count 6.22 X10*6/uL (4.60-5.80); Red Cell Distribution Width 16.9 % (11.0-16.0); White Blood Count 9.8 X10*3/uL (4.8-10.8)
[2023-10-01 12:55] LABS: INTERNATIONAL NORM RATIO 1.3 (0.9-1.1); Prothrombin Time 15.3 SEC (11.1-13.3)
[2023-10-01 13:40] LABS: Anion Gap 13 (12-20); Blood Urea Nitrogen 14 mg/dL (9-16); Calcium 9.2 mg/dL (8.4-10.2); Carbon Dioxide 24 mmol/L (22-29); Chloride 104 mmol/L (96-108); Estimated Glomerular Filt Rate > 60; Glucose Random 166 mg/dL (60-115); Potassium 4.1 mmol/L (3.3-5.1); Sodium 137 mmol/L (135-145)
== END 2023-10-01 11:10 | disposition home or self-care (01) ==
LOC: HO.10HDL 11:09
PROVIDERS: Visit Provider Internal Medicine
DX: D64.9 Anemia, unspecified (principal); R53.1 Weakness; Z86.73 Personal history of transient ischemic attack (TIA), and cerebral infarction without residual deficits
CPT/HCPCS: 36415; 80048; 85025; 85610

== ENCOUNTER 2023-12-24 11:20 | Outpatient (REF) | payer MEDICARE, MEDICAID, SELFPAY ==
[2023-12-24 13:38] LABS: MANUAL DIFF FLAG NO
[2023-12-24 13:47] LABS: Basophils Percent Auto 0.5 % (0-2); Eosinophils Absolute Auto 0.1 X10*3/uL (0.0-0.4); Eosinophils Percent Auto 0.9 % (0-4); Hematocrit 42.4 % (42.0-52.0); Hemoglobin 13.2 g/dl (14.0-18.0); Imm Gran Abs Auto 0.02 X10*3/uL (0.00-0.03); Imm Gran Pct Auto 0.2 % (0.0-0.4); Lymphocytes Absolute Auto 1.9 X10*3/uL (1.2-4.9); Lymphocytes Percent Auto 21.8 % (20-40); Mean Corpuscular HGB Conc 31.1 g/dl (31.0-36.0); Mean Corpuscular Hemoglobin 21.4 pg (27.0-33.0); Mean Corpuscular Volume 68.7 fL (80.0-98.0); Mean Platelet Volume 11.3 fL (9.4-12.4); Monocytes Absolute Auto 0.8 X10*3/uL (0.1-1.2); Monocytes Percent Auto 9.5 % (2-11); Neutrophils Absolute Auto 5.8 x10*3/uL (2.0-8.3); Neutrophils Percent Auto 67.1 % (45-73); Platelet Count 187 X10*3/uL (160-400); Red Blood Count 6.17 X10*6/uL (4.60-5.80); Red Cell Distribution Width 16.4 % (11.0-16.0); White Blood Count 8.6 X10*3/uL (4.8-10.8)
[2023-12-24 14:24] LABS: Alanine Aminotransferase 22 U/L (0-40); Albumin Level 4.1 g/dL (3.5-5.0); Alkaline Phosphatase 92 U/L (39-117); Anion Gap 11 (12-20); Aspartate Amino Transferase 14 U/L (5-37); Bilirubin Total 0.6 mg/dL (0.0-1.0); Blood Urea Nitrogen 11 mg/dL (9-16); Calcium 9.1 mg/dL (8.4-10.2); Carbon Dioxide 24 mmol/L (22-29); Chloride 107 mmol/L (96-108); Estimated Glomerular Filt Rate > 60; Glucose Random 134 mg/dL (60-115); Potassium 3.9 mmol/L (3.3-5.1); Sodium 138 mmol/L (135-145); Total Protein 6.7 g/dL (6.5-8.0)
[2023-12-24 14:31] LABS: Estimated Average Glucose 134 mg/dL; Hemoglobin A1c % 6.3 % (<6.0)
== END 2023-12-24 11:21 | disposition home or self-care (01) ==
LOC: HO.10HDL 11:20
PROVIDERS: Visit Provider Internal Medicine
DX: E11.9 Type 2 diabetes mellitus without complications (principal); Z86.73 Personal history of transient ischemic attack (TIA), and cerebral infarction without residual deficits; R60.0 Localized edema
CPT/HCPCS: 36415; 80053; 83036; 85025

== ENCOUNTER 2023-12-27 08:33 | Outpatient (AMB) | payer OTHER, MEDICAID, SELFPAY ==
--- NOTE | 2023-12-27 08:51 | A.OFFVIS_ITS ---
Intake Visit Reasons: nocturia Intake Note: New Patient presents today for initial visit to establish treatment for : Nocturia Urology Medications: none Allergies to Antibiotic: none Blood Thinner: warfarin PVR: 74ml's Manager Of Compliance Required: No Accompanied by: Self / Same As Patient Allergies No Known Allergies [No Known Allergies*] Allergy (Unverified 12/27/23 09:28) Medication List - Last Reconciled 12/27/23 by FUNMILAYO Toure atorvastatin 40 mg PO DAILY [id number]-adswyn-JI-thonzonium 3.3-3-10-0.5 mg/mL (Cortisporin-TC) 4 drps otic (ear) left QID 7 days warfarin 5 mg PO DAILY HPI Comments Details: Yani is a 58 year old male patient of Dr. Taylor. He has a PMH of CVA. He presents to the office today as a new patient for nocturia. In discussion with the patient today reports having followed up with his PCP and discussing episodes of nocturia which time recommendations were made for urology referral. He reports nocturia up to 3 times per night. Otherwise denies any bothersome urinary issues or concerns. He denies urinary urgency, urinary frequency, incontinence, hematuria, dysuria, foul smelling urine, changes to urinary stream, flank pain, fever, and or chills. He does no urinary frequency when drinking beer. Unable to obtain urine for urinalysis as patient unable to void however PVR 74 mL. When asked he does report drinking fluids such as soda prior to bed. Discussed at length potential causes for nocturia. Discussed lifestyle modifications to assist with nocturia. When asked he denies any signs and symptoms of sleep apnea. He otherwise offers no other issues or concerns at this time. In review of patient's chart it appears PSAs are as follows: PSAs: 04/29 0.4, 04/02 0.7, 05/03 0.6 PFSH Medical History CVA (cerebral vascular accident) Surgical History History of CEA (carotid endarterectomy) Social History Alcohol intake: current Alcohol intake frequency: a few times a month Review of Systems Const All systems reviewed & are unremarkable except as noted in HPI and below Physical Exam Const General: cooperative, comfortable, no acute distress, well developed, alert and awake Nutritional Appearance: overweight Orientation/consciousness: patient oriented x3 Limitations: no limitations HEENT Head: Yes normal to inspection, Yes normocephalic and Yes atraumatic Ears: hearing grossly normal bilaterally Eyes General: appearance normal, both eyes and all related structures Neck Neck: Yes normal visual inspection and Yes trachea midline Chest Chest palpation & inspection: normal inspection of the chest Resp Effort & Inspection: normal respiratory effort and able to speak in complete sentences Cardio Rate: regular rate GI Inspection: Yes normal to inspection General: Yes no CVA tenderness Back/Spine/Pelvis Back: no CVA tenderness Skin General skin exam: no rashes or lesions noted Neuro General: patient oriented x3 Extrem General: Yes normal to inspection Psych Appearance: grossly normal and well kempt Mental Status: mental status grossly normal Speech and movement: Normal speech and movement present and Clear speech present Affect: normal affect Attitude: cooperative Thought process: Normal thought process present Thought content: Normal thought content present Insight: Fair insight present (Psych) Judgement: Fair judgement present (Psych) Office Procedures Post Void Residual Post Residual Void Post Void Residual (PVR): [id number] Void Residual by ultrasound Assessment & Plan Assessment & Plan (1) Nocturia: Code(s): R35.1 - Nocturia Category: Medical Plan Unable to obtain urine for urinalysis as patient unable to void however PVR 74 mL. Discussed at length potential causes for nocturia. Discussed lifestyle modifications to assist with nocturia such as limiting fluids 2-3 hours prior to bed. Will obtain retroperitoneal ultrasound for further assessment evaluation. Discussed at length potential for near future in office cystoscopy and or urodynamics for further assessment evaluation if symptoms persist and/or worsen. Discussed bladder triggers/irritants. Follow-up in 1-3 months with imaging to be completed prior; or sooner with any issues, concerns, and or questions. Orders: Orders AMB Post Void Residual by ultrasound Today Z13.9 - Encounter for screening, unspecified Prostate Specific Antigen Today Z12.5 - Encounter for screening for malignant neoplasm of prostate US retroperitoneal comp Today R35.1 - Nocturia Patient Instructions: The patient had an opportunity to ask questions regarding the treatment plan. All questions were answered. Physical exam, labs, and imaging were discussed and reviewed in detail. As well as risks, benefits, and discussion of treatment choices. No major barriers to understanding were identified. The patient expre ssed understanding and agreement with the above treatment plan. The patient was made aware they should contact our office by phone for worsening of their current condition, the appearance of new symptoms, or with any questions or concerns. Compliance is encouraged with any medications and follow up testing that is ordered. It is a privilege to be allowed the opportunity to participate in? your urological care.? Again, if you have any questions or concerns If you have any questions or concerns please do not hesitate to contact me. The office is [phone]. This note is constructed using voice recognition software. While every effort has been made to ensure accuracy physical science professor errors may have been included. Yours sincerely, FUNMILAYO Toure Coding Level of Care Code New Pt Level 3 (34696) Diagnoses Nocturia R35.1 CPT Codes Post Residual Void - PVR CPT Code: 92454-Fsyr Void Residual by ultrasound ([id number])
== END 2023-12-27 09:16 | disposition home or self-care (01) ==
PROVIDERS: PCP Internal Medicine; Visit Provider Nurse Practitioner Family
DX: R35.1 Nocturia (principal)
CPT/HCPCS: 99203

== ENCOUNTER 2023-12-27 08:33 | Outpatient (REF) | payer OTHER, MEDICAID, SELFPAY | END 2023-12-27 08:34 | disposition home or self-care (01) | LOC: HO.LAB 08:33 | PROVIDERS: PCP Internal Medicine; Visit Provider Nurse Practitioner Family | DX: Z12.5 Encounter for screening for malignant neoplasm of prostate (principal) | CPT/HCPCS: 51798 ==

== ENCOUNTER 2024-02-15 09:21 | Outpatient (REF) | payer MEDICARE, SELFPAY ==
--- NOTE | ~2024-02-15 | US_ITS ---
EXAMINATION: US RETROPERITONEAL LIMITED (RENAL ONLY) CLINICAL INFORMATION: Nocturia. COMPARISON: CT abdomen and pelvis 01/15/2020. Abdomen 1 view 05/26/2019. TECHNIQUE: Real-time imaging of the kidneys. Limited visualization due to bowel gas. FINDINGS: RIGHT KIDNEY: 12.3 x 6.5 x 6.7 cm (SAG x AP x TRV). Moderate hydronephrosis. No obstructing renal calculi. Renal cortical thickness is normal. Limited visualization. LEFT KIDNEY: 14.1 x 6.3 x 7.6 cm (SAG x AP x TRV). Moderate hydronephrosis. No obstructing renal calculi. Renal cortical thickness is normal. Limited visualization. 5.5 x 5.2 x 5.0 cm left renal lower pole cyst with benign features. There is no indication for follow-up imaging. US/US renal BI IMPRESSION: 1. Moderate bilateral hydronephrosis. No obstructing renal calculi. 2. A 5.5 cm left renal lower pole cyst with benign features. There is no indication for follow-up imaging.
== END 2024-02-15 09:22 | disposition home or self-care (01) ==
LOC: HO.US 09:21
PROVIDERS: PCP Internal Medicine; Visit Provider Nurse Practitioner Family
DX: R35.1 Nocturia (principal)
CPT/HCPCS: 76775

== ENCOUNTER 2024-02-16 15:06 | Outpatient (REF) | payer MEDICARE, SELFPAY ==
--- NOTE | ~2024-02-16 | US_ITS ---
EXAMINATION: US PELVIS LIMITED (BLADDER) CLINICAL INFORMATION: Nocturia. COMPARISON: Renal ultrasound 02/15/2024. CT abdomen and pelvis 01/15/2020. X-ray abdomen KUB 05/26/2019. TECHNIQUE: Real-time imaging of the bladder. FINDINGS: BLADDER: Well distended. Mild diffuse trabeculation/irregularity of the bladder wall. Bilateral ureteral jets are demonstrated. Prevoid bladder volume is 138 mL. Postvoid bladder volume is 30.1 mL. ADDITIONAL FINDINGS: Limited visualization of prostate due to bowel gas and body habitus. Measurements of prostate gland are therefore only approximate; approximate prostate volume is 15.6 mL. US/US bladder IMPRESSION: 1. Mild diffuse trabeculation/irregularity of the bladder wall. 2. Postvoid bladder volume is 30.1 mL. 3. Limited visualization of prostate due to bowel gas and body habitus. Measurements of prostate are therefore only approximate; approximate prostate volume is 15.6 mL.
== END 2024-02-16 15:07 | disposition home or self-care (01) ==
LOC: HO.US 15:06
PROVIDERS: PCP Internal Medicine; Visit Provider Nurse Practitioner Family
DX: R35.1 Nocturia (principal)
CPT/HCPCS: 76857

== ENCOUNTER 2024-02-29 08:26 | Outpatient (REF) | payer OTHER, MEDICAID, SELFPAY | END 2024-02-29 08:27 | disposition home or self-care (01) | LOC: HO.LNP 08:26 | PROVIDERS: PCP Internal Medicine; Visit Provider Nurse Practitioner Family | DX: R35.1 Nocturia (principal); N13.30 Unspecified hydronephrosis; N32.89 Other specified disorders of bladder | CPT/HCPCS: 51798 ==

== ENCOUNTER 2024-02-29 08:26 | Outpatient (AMB) | payer OTHER, MEDICAID, SELFPAY ==
--- NOTE | 2024-02-29 08:40 | MHC.OFFVIS ---
Intake Visit Reasons: 2m/US(set) Intake Note: New Patient presents today for initial visit to establish treatment for : Nocturia Urology Medications: none Allergies to Antibiotic: none Blood Thinner: warfarin PVR: 32ml's Nursing Assistants Teacher Required: No Accompanied by: Self / Same As Patient Allergies No Known Allergies [No Known Allergies*] Allergy (Unverified 02/29/24 19:10) Medication List - Last Reconciled 02/29/24 by REBECA Toure-JI atorvastatin 40 mg PO DAILY iagjnswk-jaxuqj-ET-thonzonium 3.3-3-10-0.5 mg/mL (Cortisporin-TC) 4 drps otic (ear) left QID 7 days tamsulosin 0.4 mg PO BEDTIME 30 days warfarin 5 mg PO DAILY HPI Comments Details: Yani is a 59 year old male patient of Dr. Taylor. He has a PMH of CVA. He presents to the office today as for follow-up. Of note, patient was seen approximately 2 months ago a new patient for nocturia at which time a retroperitoneal ultrasound was ordered for further assessment evaluation. These results were reviewed with the patient today. Bilateral kidneys with moderate hydronephrosis. No obstructing renal calculi. Limited visualization. 5.5 left renal lower pole cyst with benign features that requires no imaging follow-up per radiology report. The bladder is well distended. Mild diffuse trabeculations and irregularity of the bladder wall. Bilateral ureteral jets are demonstrated. Pre void bladder volume is approximately 140 mL. Postvoid bladder volume is approximately 30 mL. Discussed at length potential causes of moderate hydronephrosis as well as mild diffuse trabeculations and irregularity noted on most recent ultrasound. Discussed further workup of bilateral hydronephrosis with nuclear renal scan for further assessment evaluation. He does report following lifestyle modifications that were recommended during last office visit with limiting fluids 2-3 hours prior to bed to assist with decreasing episodes of nocturia and has felt this has been somewhat helpful. Reports nocturia has decreased from 5 times per night as he had been experiencing to approximately 2 times per night. Unable to obtain urine for urinalysis today however PVR 32ml's. He otherwise denies any bothersome urinary issues or concerns. He denies urinary urgency, urinary frequency, incontinence, hematuria, dysuria, foul smelling urine, changes to urinary stream, flank pain, fever, and or chills. He otherwise offers no other issues or concerns at this time. In review of patient's chart it appears PSAs, BUN, and creatinine are as follows: PSAs: 04/29 0.4, 04/02 0.7, 05/03 0.6 BUN: 04/29 15, 10/29 16, 09/01 16, 07/01 12, 09/30 13, 12/31 17, 11/01 14, 05/03 18, 09/04 14, 01/02 11 Creatinine: 04/29 0.97, 10/29 1.07, 09/01 1.03, 07/01 1.20, 09/30 1.19, 12/31 1.01, 11/01 1.17,05/03 1.06, 09/04 1.10, 01/02 1.04 [facility] Medical History CVA (cerebral vascular accident) Surgical History History of CEA (carotid endarterectomy) Social History Alcohol intake: current Alcohol intake frequency: a few times a month Review of Systems Const All systems reviewed & are unremarkable except as noted in HPI and below Physical Exam Const General: cooperative, comfortable, no acute distress, well developed, alert and awake Nutritional Appearance: overweight Orientation/consciousness: patient oriented x3 Limitations: no limitations HEENT Head: Yes normal to inspection, Yes normocephalic and Yes atraumatic Ears: hearing grossly normal bilaterally Eyes General: appearance normal, both eyes and all related structures Neck Neck: Yes normal visual inspection and Yes trachea midline Chest Chest palpation & inspection: normal inspection of the chest Resp Effort & Inspection: normal respiratory effort and able to speak in complete sentences Cardio Rate: regular rate GI Inspection: Yes normal to inspection General: Yes no CVA tenderness Back/Spine/Pelvis Back: no CVA tenderness Skin General skin exam: no rashes or lesions noted Neuro General: patient oriented x3 Extrem General: Yes normal to inspection Psych Appearance: grossly normal and well kempt Mental Status: mental status grossly normal Speech and movement: Normal speech and movement present and Clear speech present Affect: normal affect Attitude: cooperative Thought process: Normal thought process present Thought content: Normal thought content present Insight: Fair insight present (Psych) Judgement: Fair judgement present (Psych) Office Procedures Post Void Residual Post Residual Void Post Void Residual (PVR): 32 [id number]-Ptgb Void Residual by ultrasound Results Reviewed Results Reviewed: Date of Service: 02/15/24 EXAMINATION: US RETROPERITONEAL LIMITED (RENAL ONLY) FINDINGS: RIGHT KIDNEY: 12.3 x 6.5 x 6.7 cm (SAG x AP x TRV). Moderate hydronephrosis. No obstructing renal calculi. Renal cortical thickness is normal. Limited visualization. LEFT KIDNEY: 14.1 x 6.3 x 7.6 cm (SAG x AP x TRV). Moderate hydronephrosis. No obstructing renal calculi. Renal cortical thickness is normal. Limited visualization. 5.5 x 5.2 x 5.0 cm left renal lower pole cyst with benign features. There is no indication for follow-up imaging. IMPRESSION: 1. Moderate bilateral hydronephrosis. No obstructing renal calculi. 2. A 5.5 cm left renal lower pole cyst with benign features. There is no indication for follow-up imaging Date of Service: 02/16/24 EXAMINATION: US PELVIS LIMITED (BLADDER) FINDINGS: BLADDER: Well distended. Mild diffuse trabeculation/irregularity of the bladder wall. Bilateral ureteral jets are demonstrated. Prevoid bladder volume is 138 mL. Postvoid bladder volume is 30.1 mL. ADDITIONAL FINDINGS: Limited visualization of prostate due to bowel gas and body habitus. Measurements of prostate gland are therefore only approximate; approximate prostate volume is 15.6 mL. IMPRESSION: 1. Mild diffuse trabeculation/irregularity of the bladder wall. 2. Postvoid bladder volume is 30.1 mL. 3. Limited visualization of prostate due to bowel gas and body habitus. Measurements of prostate are therefore only approximate; approximate prostate volume is 15.6 mL. Assessment & Plan Assessment & Plan (1) Nocturia: Code(s): R35.1 - Nocturia Category: Medical (2) Hydronephrosis: Code(s): N13.30 - Unspecified hydronephrosis Category: Medical (3) Bladder trabeculation: Code(s): N32.89 - Other specified disorders of bladder Category: Medical Plan Unable to obtain urine for urinalysis however PVR 32 mL. Recent retroperitoneal ultrasound results reviewed with the patient today; as noted above. Discussed further assessment evaluation with nuclear renal scan for moderate hydronephrosis noted on recent imaging. Discussed potential causes of hydronephrosis as well as bladder trabeculations. Start Flomax as discussed and prescribed. Continue with limiting fluids 2-3 hours prior to bed to continue assisting with episodes of nocturia. Will obtain nuclear renal scan. BUN and creatinine ordered. Follow-up in 1-3 months with imaging and labs to be completed prior; or sooner with any issues, concerns, and or questions. Orders: Orders AMB Urinalysis Automated Today Z13.9 - Encounter for screening, unspecified PSA,Total (Free>4and<10) Today R35.1 - Nocturia AMB Post Void Residual by ultrasound Today R35.1 - Nocturia Blood Urea Nitrogen Today N13.30 - Unspecified hydronephrosis Creatinine Today N13.30 - Unspecified hydronephrosis NM renal flow w pharm int Today N13.30 - Unspecified hydronephrosis, R35.1 - Nocturia Medications: New tamsulosin 0.4 mg PO BEDTIME 30 days 30 caps 3RF N40.1 - Benign prostatic hyperplasia with lower urinary tract symptoms, R35.1 - Nocturia Patient Instructions: The patient had an opportunity to ask questions regarding the treatment plan. All questions were answered. Physical exam, labs, and imaging were discussed and reviewed in detail. As well as risks, benefits, and discussion of treatment choices. No major barriers to understanding were identified. The patient expressed understanding and agreement with the above treatment plan. The patient was made aware they should contact our office by phone for worsening of their current condition, the appearance of new symptoms, or with any questions or concerns. Compliance is encouraged with any medications and follow up testing that is ordered. It is a privilege to be allowed the opportunity to participate in? your urological care.? Again, if you have any questions or concerns If you have any questions or concerns please do not hesitate to contact me. The office is [phone]. This note is constructed using voice recognition software. While every effort has been made to ensure accuracy personal lines insurance advisor errors may have been included. Yours sincerely, REBECA Toure-BC Coding Level of Care Code Est Pt Level 4 (75883) Diagnoses Nocturia R35.1 Hydronephrosis N13.30 Bladder trabeculation N32.89 CPT Codes Post Residual Void - PVR CPT Code: 33509-Qtvn Void Residual by ultrasound ([id number])
== END 2024-02-29 09:14 | disposition home or self-care (01) ==
PROVIDERS: PCP Internal Medicine; Visit Provider Nurse Practitioner Family
DX: R35.1 Nocturia (principal); N13.30 Unspecified hydronephrosis; N32.89 Other specified disorders of bladder
CPT/HCPCS: 99214

== ENCOUNTER 2024-04-05 09:13 | Outpatient (REF) | payer MEDICARE, SELFPAY ==
[2024-04-05 09:58] LABS: MANUAL DIFF FLAG NO
[2024-04-05 10:06] LABS: Basophils Percent Auto 0.6 % (0-2); Eosinophils Absolute Auto 0.1 X10*3/uL (0.0-0.4); Eosinophils Percent Auto 1.7 % (0-4); Hemoglobin 13.4 g/dl (14.0-18.0); Imm Gran Abs Auto 0.02 X10*3/uL (0.00-0.03); Imm Gran Pct Auto 0.3 % (0.0-0.4); Lymphocytes Absolute Auto 1.5 X10*3/uL (1.2-4.9); Lymphocytes Percent Auto 20.7 % (20-40); Mean Corpuscular HGB Conc 30.5 g/dl (31.0-36.0); Mean Corpuscular Hemoglobin 21.3 pg (27.0-33.0); Mean Corpuscular Volume 69.8 fL (80.0-98.0); Mean Platelet Volume 11.1 fL (9.4-12.4); Monocytes Absolute Auto 0.5 X10*3/uL (0.1-1.2); Monocytes Percent Auto 6.2 % (2-11); Neutrophils Absolute Auto 5.1 x10*3/uL (2.0-8.3); Neutrophils Percent Auto 70.5 % (45-73); Platelet Count 166 X10*3/uL (160-400); Red Cell Distribution Width 17.3 % (11.0-16.0); White Blood Count 7.2 X10*3/uL (4.8-10.8)
[2024-04-05 10:14] LABS: Estimated Average Glucose 131 mg/dL; Hemoglobin A1C 150.3337 umol/L; Hemoglobin A1c % 6.2 % (<6.0)
[2024-04-05 10:48] LABS: Alanine Aminotransferase 26 U/L (0-40); Albumin Level 4.1 g/dL (3.5-5.0); Alkaline Phosphatase 91 U/L (39-117); Anion Gap 10 (12-20); Aspartate Amino Transferase 16 U/L (5-37); Bilirubin Total 0.9 mg/dL (0.0-1.0); Blood Urea Nitrogen 13 mg/dL (9-16); Calcium 9.5 mg/dL (8.4-10.2); Carbon Dioxide 28 mmol/L (22-29); Chloride 107 mmol/L (96-108); Cholesterol 108 mg/dL (<200); Estimated Glomerular Filt Rate > 60; Glucose Fasting 160 mg/dL (60-99); HDL Cholesterol 38 mg/dL (>40); LDL Cholesterol Calculated 33 mg/dL (<100); Potassium 4.1 mmol/L (3.3-5.1); Sodium 141 mmol/L (135-145); Total Protein 6.7 g/dL (6.5-8.0); Triglycerides 185 mg/dL (<150)
[2024-04-05 12:52] LABS: Prostate Specific Antigen Scr 0.72 ng/mL (<0.05-4.0)
== END 2024-04-05 09:14 | disposition home or self-care (01) ==
LOC: HO.10HDL 09:13
PROVIDERS: Visit Provider Internal Medicine
DX: Z12.5 Encounter for screening for malignant neoplasm of prostate (principal); R73.03 Prediabetes; E78.00 Pure hypercholesterolemia, unspecified; Z86.73 Personal history of transient ischemic attack (TIA), and cerebral infarction without residual deficits
CPT/HCPCS: 36415; 80053; 80061; 83036; 84153; 85025

== ENCOUNTER → 2024-04-11 10:30 | Outpatient (REF) | payer MEDICARE, SELFPAY ==
--- NOTE | ~2024-04-11 | NM_ITS ---
EXAMINATION: RENAL DYNAMIC IMAGING STUDY WITH LASIX CLINICAL INFORMATION: Unspecified hydronephrosis. COMPARISON: No previous radionuclide renal scan is available for comparison. Renal ultrasound dated 02/15/2024 is available for comparison. TECHNIQUE: Serial gamma scintillation camera images were obtained over the posterior trunk during the initial transit and subsequent distribution of a bolus intravenous injection of 10 mCi of Tc-99m DTPA. At 30 minutes later, 40 mg of Lasix was administered intravenously and an additional 15 minutes of images obtained. The study was terminated earlier than the usual 30 minutes post Lasix due to the patient's urgency to void. FINDINGS: Initial rapid sequence images show prompt and bilaterally symmetrical flow to the kidneys. Subsequent sequential static images obtained up to 30 minutes show good concentration bilaterally. The kidneys are approximately equal in size. There is good concentration bilaterally. Excretory function is visualized by 4 minutes postinjection bilaterally. Some urinary bladder activity is visualized by 8 minutes post injection and this gradually increases in intensity. At 30 minutes post injection there is good visualization of activity in the urinary bladder and mild dilatation retention in both kidneys predominantly in the calyces. Following Lasix administration, there is prompt washout of the retained activity in both renal collecting systems. When the study was terminated, particularly because of the patient's urgency to void, a full urinary bladder is visualized and there is only minimal retention in upper pole calyx on the left and no significant retention in the right renal collecting system. The T-1/2 washout times following Lasix administration are: Left 6 minutes and right 4 minutes. The relative function of the two kidneys based on the 2-3 minute images are: Left 44% and right 56%. NM/NM renal flow w pharm int IMPRESSION: LEFT KIDNEY: Normal perfusion and function. Mild hydronephrosis is present, predominantly in the calyceal system, but there is no outflow obstruction. RIGHT KIDNEY: Normal perfusion and function. Mild hydronephrosis is present, predominantly in the calyceal system, but there is no evidence of obstruction. Electronically signed by: Jonathan Mcmahon MD 04/12/2024 04:56 PM EDT
== END ==
LOC: HO.NUCMED 10:30
PROVIDERS: PCP Internal Medicine; Visit Provider Nurse Practitioner Family
DX: N13.30 Unspecified hydronephrosis (principal); R35.1 Nocturia
CPT/HCPCS: 78708; A9539; J1940

== ENCOUNTER 2024-06-01 10:14 | Outpatient (AMB) | payer OTHER, MEDICAID, SELFPAY ==
--- NOTE | 2024-06-01 10:43 | A.OFFVIS_ITS ---
Intake Visit Reasons: 3 month/ labs/ Ct Scan Intake Note: Patient presents today for follow up visit on: Nocturia Urology Medications: tamsulosin Allergies to Antibiotic: none Blood Thinner: warfarin PVR: 56ml's Animal Science Instructor Required: No Accompanied by: Self / Same As Patient Allergies No Known Allergies [No Known Allergies*] Allergy (Unverified 06/01/24 11:11) Medication List - Last Reconciled 06/01/24 by FUNMILAYO Toure atorvastatin 40 mg PO DAILY avoshrpq-hwahra-SR-thonzonium 3.3-3-10-0.5 mg/mL (Cortisporin-TC) 4 drps otic (ear) left QID 7 days tamsulosin 0.4 mg PO BEDTIME 30 days warfarin 5 mg PO DAILY HPI Comments Details: Yani is a 59 year old male patient of Dr. Taylor. He has a PMH of CVA. He presents to the office today as for follow-up. Of note, patient was seen approximately 3 months ago at which time a nuclear renal scan was ordered for further assessment evaluation of moderate hydronephrosis noted on recent retroperitoneal ultrasound. These results were reviewed with the patient today. Bilateral kidneys with normal perfusion and function. Mild hydronephrosis is present, predominantly in the calyx see system, but there is no outflow obstruction. The relative function of the 2 kidneys based on a 2-3 minute image are left 44% and right 56%. BUN and creatinine results were reviewed with the patient today as noted and trended below. In discussion with the patient today he reports noting improvement in nocturia with 0.4 mg of Flomax as prescribed. He reports episodes of nocturia have decreased from 5 times per night to 2-3 times per night. Previous workup has included a retroperitoneal ultrasound noting bilateral kidneys with moderate hydronephrosis. No obstructing renal calculi. Limited visualization. 5.5 left renal lower pole cyst with benign features that requires no imaging follow-up per radiology report. The bladder is well distended. Mild diffuse trabeculations and irregularity of the bladder wall. Bilateral ureteral jets are demonstrated. Pre void bladder volume is approximately 140 mL. Postvoid bladder volume is approximately 30 mL. He does report following lifestyle modifications that were recommended during last office visit with limiting fluids 2-3 hours prior to bed to assist with decreasing episodes of nocturia and has felt this has also been helpful. been somewhat helpful. He otherwise denies any bothersome urinary issues or concerns. He denies urinary urgency, urinary frequency, incontinence, hematuria, dysuria, foul smelling urine, changes to urinary stream, flank pain, fever, and or chills. Unable to obtain urine for urinalysis however PVR 56 mL. He otherwise offers no other issues or concerns at this time. In review of patient's chart it appears PSAs, BUN, and creatinine are as follows: PSAs: 04/29 0.4, 04/02 0.7, 05/03 0.6, 04/04 0.7 BUN: 04/29 15, 10/29 16, 09/01 16, 07/01 12, 09/30 13, 12/31 17, 11/01 14, 05/03 18, 09/04 14, 01/02 11, 04/04 13 Creatinine: 04/29 0.97, 10/29 1.07, 09/01 1.03, 07/01 1.20, 09/30 1.19, 12/31 1.01, 11/01 1.17,05/03 1.06, 09/04 1.10, 01/02 1.04, 04/04 1.07 [facility] Medical History CVA (cerebral vascular accident) Surgical History History of CEA (carotid endarterectomy) Social History Alcohol intake: current Alcohol intake frequency: a few times a month Review of Systems Const All systems reviewed & are unremarkable except as noted in HPI and below Physical Exam Const General: cooperative, comfortable, no acute distress, well developed, alert and awake Nutritional Appearance: overweight Orientation/consciousness: patient oriented x3 Limitations: no limitations HEENT Head: Yes normal to inspection, Yes normocephalic and Yes atraumatic Ears: hearing grossly normal bilaterally Eyes General: appearance normal, both eyes and all related structures Neck Neck: Yes normal visual inspection and Yes trachea midline Chest Chest palpation & inspection: normal inspection of the chest Resp Effort & Inspection: normal respiratory effort and able to speak in complete sentences Cardio Rate: regular rate GI Inspection: Yes normal to inspection General: Yes no CVA tenderness Back/Spine/Pelvis Back: no CVA tenderness Skin General skin exam: no rashes or lesions noted Neuro General: patient oriented x3 Extrem General: Yes normal to inspection Psych Appearance: grossly normal and well kempt Mental Status: mental status grossly normal Speech and movement: Normal speech and movement present and Clear speech present Affect: normal affect Attitude: cooperative Thought process: Normal thought process present Thought content: Normal thought content present Insight: Fair insight present (Psych) Judgement: Fair judgement present (Psych) Office Procedures Post Void Residual Post Residual Void Post Void Residual (PVR): 56 [id number] Void Residual by ultrasound Results Reviewed Results Reviewed: Date of Service: 04/11/24 EXAMINATION: RENAL DYNAMIC IMAGING STUDY WITH LASIX FINDINGS: Initial rapid sequence images show prompt and bilaterally symmetrical flow to the kidneys. Subsequent sequential static images obtained up to 30 minutes show good concentration bilaterally. The kidneys are approximately equal in size. There is good concentration bilaterally. Excretory function is visualized by 4 minutes postinjection bilaterally. Some urinary bladder activity is visualized by 8 minutes post injection and this gradually increases in intensity. At 30 minutes post injection there is good visualization of activity in the urinary bladder and mild dilatation retention in both kidneys predominantly in the calyces. Following Lasix administration, there is prompt washout of the retained activity in both renal collecting systems. When the study was terminated, particularly because of the patient's urgency to void, a full urinary bladder is visualized and there is only minimal retention in upper pole calyx on the left and no significant retention in the right renal collecting system. The T-1/2 washout times following Lasix administration are: Left 6 minutes and right 4 minutes. The relative function of the two kidneys based on the 2-3 minute images are: Left 44% and right 56%. IMPRESSION: LEFT KIDNEY: Normal perfusion and function. Mild hydronephrosis is present, predominantly in the calyceal system, but there is no outflow obstruction. RIGHT KIDNEY: Normal perfusion and function. Mild hydronephrosis is present, predominantly in the calyceal system, but there is no evidence of obstruction. Assessment & Plan Assessment & Plan (1) Nocturia: Code(s): R35.1 - Nocturia Category: Medical (2) Hydronephrosis: Code(s): N13.30 - Unspecified hydronephrosis Category: Medical (3) Bladder trabeculation: Code(s): N32.89 - Other specified disorders of bladder Category: Medical Plan Unable to obtain urine for urinalysis however PVR 56 mL. Recent PSA results reviewed with the patient today; as noted above. Recent nuclear renal scan results reviewed with the patient today; as noted above. Discussed potential causes of hydronephrosis, nocturia, as well as bladder trabeculations. Continue Flomax; will increase to 0.8 mg per day. Continue with limiting fluids 2-3 hours prior to bed to continue assisting with episodes of nocturia. BUN and creatinine results trended and reviewed with the patient today; as noted above Follow-up in 3 months with imaging and labs to be completed prior; or sooner with any issues, concerns, and or questions. Orders: Orders AMB Post Void Residual by ultrasound Today R35.1 - Nocturia Medications: Changed From tamsulosin 0.4 mg PO BEDTIME 30 days 30 caps 3RF N40.1 - Benign prostatic hyperplasia with lower urinary tract symptoms, R35.1 - Nocturia To tamsulosin 0.8 mg (2 x 0.4 mg) PO BEDTIME 90 days 180 caps 3RF N40.1 - Benign prostatic hyperplasia with lower urinary tract symptoms, R35.1 - Nocturia Patient Instructions: The patient had an opportunity to ask questions regarding the treatment plan. All questions were answered. Physical exam, labs, and imaging were discussed and reviewed in detail. As well as risks, benefits, and discussion of treatment choices. No major barriers to understanding were identified. The patient expressed understanding and agreement with the above treatment plan. The patient was made aware they should contact our office by phone for worsening of their current condition, the appearance of new symptoms, or with any questions or concerns. Compliance is encouraged with any medications and follow up testing that is ordered. It is a privilege to be allowed the opportunity to participate in? your urological care.? Again, if you have any questions or concerns If you have any questions or concerns please do not hesitate to contact me. The office is [phone]. This note is constructed using voice recognition software. While every effort has been made to ensure accuracy spanish teacher errors may have been included. Yours sincerely, REBECA Toure-JI Coding Level of Care Code Est Pt Level 3 (42585) Complex EM visit Add On G2211 Diagnoses Nocturia R35.1 Hydronephrosis N13.30 Bladder trabeculation N32.89 CPT Codes Post Residual Void - PVR CPT Code: 90615-Nhwf Void Residual by ultrasound ([id number])
== END 2024-06-01 11:11 | disposition home or self-care (01) ==
PROVIDERS: PCP Internal Medicine; Visit Provider Nurse Practitioner Family
DX: R35.1 Nocturia (principal); N13.30 Unspecified hydronephrosis; N32.89 Other specified disorders of bladder
CPT/HCPCS: 99213

== ENCOUNTER → 2024-06-01 10:14 | Outpatient (BNVA) | payer OTHER, MEDICAID, SELFPAY | PROVIDERS: PCP Internal Medicine; Visit Provider Nurse Practitioner Family | DX: N40.1 Benign prostatic hyperplasia with lower urinary tract symptoms (principal); R35.1 Nocturia; N13.30 Unspecified hydronephrosis; N32.89 Other specified disorders of bladder; Z79.899 Other long term (current) drug therapy | CPT/HCPCS: 51798 ==

== ENCOUNTER 2024-07-27 11:28 | Outpatient (REF) | payer OTHER, MEDICAID, SELFPAY ==
[2024-07-27 11:58] LABS: MANUAL DIFF FLAG NO
[2024-07-27 12:04] LABS: Basophils Percent Auto 0.5 % (0-2); Eosinophils Absolute Auto 0.1 X10*3/uL (0.0-0.4); Eosinophils Percent Auto 1.1 % (0-4); Hematocrit 45.7 % (42.0-52.0); Hemoglobin 14.1 g/dl (14.0-18.0); Imm Gran Abs Auto 0.02 X10*3/uL (0.00-0.03); Imm Gran Pct Auto 0.2 % (0.0-0.4); Lymphocytes Absolute Auto 1.7 X10*3/uL (1.2-4.9); Lymphocytes Percent Auto 20.4 % (20-40); Mean Corpuscular HGB Conc 30.9 g/dl (31.0-36.0); Mean Corpuscular Hemoglobin 21.2 pg (27.0-33.0); Mean Corpuscular Volume 68.8 fL (80.0-98.0); Mean Platelet Volume 10.7 fL (9.4-12.4); Monocytes Absolute Auto 0.6 X10*3/uL (0.1-1.2); Monocytes Percent Auto 7.6 % (2-11); Neutrophils Absolute Auto 5.8 x10*3/uL (2.0-8.3); Neutrophils Percent Auto 70.2 % (45-73); Platelet Count 172 X10*3/uL (160-400); Red Blood Count 6.64 X10*6/uL (4.60-5.80); Red Cell Distribution Width 17.4 % (11.0-16.0); White Blood Count 8.2 X10*3/uL (4.8-10.8)
[2024-07-27 12:14] LABS: INTERNATIONAL NORM RATIO 1.2 (0.9-1.1); Prothrombin Time 13.5 SEC (10.9-12.4)
[2024-07-27 12:45] LABS: Albumin Level 4.2 g/dL (3.5-5.0); Alkaline Phosphatase 91 U/L (39-117); Anion Gap 10 (12-20); Aspartate Amino Transferase 18 U/L (5-37); Bilirubin Total 0.9 mg/dL (0.0-1.0); Blood Urea Nitrogen 13 mg/dL (9-16); Calcium 8.9 mg/dL (8.4-10.2); Carbon Dioxide 25 mmol/L (22-29); Chloride 110 mmol/L (96-108); Estimated Glomerular Filt Rate > 60; Glucose Random 124 mg/dL (60-115); Sodium 141 mmol/L (135-145); Total Protein 7.1 g/dL (6.5-8.0)
[2024-07-27 13:04] LABS: Alanine Aminotransferase 26 U/L (0-40)
== END 2024-07-27 11:29 | disposition home or self-care (01) ==
LOC: HO.10HDL 11:28
PROVIDERS: Visit Provider Internal Medicine
DX: Z79.01 Long term (current) use of anticoagulants (principal); Z86.73 Personal history of transient ischemic attack (TIA), and cerebral infarction without residual deficits
CPT/HCPCS: 36415; 80053; 85025; 85610

== ENCOUNTER 2024-09-06 11:28 | Outpatient (AMB) | payer OTHER, MEDICAID, SELFPAY ==
--- NOTE | 2024-09-06 11:31 | A.OFFVIS_ITS ---
Intake Visit Reasons: 3m/PVR Intake Note: Patient presents today for follow up visit on: Nocturia/hydronephrosis Urology Medications: tamsulosin Allergies to Antibiotic: none Blood Thinner: warfarin PVR: 55ml's Candy Feeder Required: No Accompanied by: Self / Same As Patient Allergies No Known Allergies [No Known Allergies*] Allergy (Verified 09/06/24 11:48) Medication List - Last Reconciled 09/06/24 by FUNMILAYO Toure atorvastatin 40 mg PO DAILY xlgrrnmh-nztnwf-GB-thonzonium 3.3-3-10-0.5 mg/mL (Cortisporin-TC) 4 drps otic (ear) left QID 7 days tamsulosin 0.8 mg (2 x 0.4 mg) PO BEDTIME 90 days warfarin 5 mg PO DAILY HPI Comments Details: Yani is a 59 year old male patient of Dr. Taylor. He has a PMH of CVA. He presents to the office today as for follow-up. In discussion with the patient today reports to be doing and feeling well. He denies having had any bothersome urinary issues or concerns since his last office visit here. He reports significant improvement in urinary urgency, urinary frequency, and episodes of nocturia he had been experiencing since increasing his Flomax to 0.8 mg daily. Patient with a previous history of moderate hydronephrosis and has undergone further workup with retroperitoneal ultrasound followed by nuclear renal imaging. These results are as follows: Nuclear renal scan 05/04 bilateral kidneys with normal perfusion and function. Mild hydronephrosis is present, predominantly in the calyx see system, but there is no outflow obstruction. The relative function of the 2 kidneys based on a 2- 3 minute image are left 44% and right 56%. Retroperitoneal ultrasound 03/04 noting bilateral kidneys with moderate hydronephrosis. No obstructing renal calculi. Limited visualization. 5.5 left renal lower pole cyst with benign features that requires no imaging follow-up per radiology report. The bladder is well distended. Mild diffuse trabeculations and irregularity of the bladder wall. Bilateral ureteral jets are demonstrated. Pre void bladder volume is approximately 140 mL. Postvoid bladder volume is approximately 30 mL. He otherwise denies any bothersome urinary issues or concerns. He denies urinary urgency, urinary frequency, incontinence, hematuria, dysuria, foul smelling urine, changes to urinary stream, flank pain, fever, and or chills. He does report occasional urinary dribbling. Unable to obtain urine for urinalysis however PVR 55mL. He otherwise offers no other issues or concerns at this time. In review of patient's chart it appears PSAs, BUN, and creatinine are as follows: PSAs: 04/29 0.4, 04/02 0.7, 05/03 0.6, 04/04 0.7 BUN: 04/29 15, 10/29 16, 09/01 16, 07/01 12, 09/30 13, 12/31 17, 11/01 14, 05/03 18, 09/04 14, 01/02 11, 04/04 13, 08/05 13 Creatinine:04/29 0.9, 10/29 1.07, 06/30 0.99, 09/30 1.19, 04/02 1.01, 11/01 1.06, 05/03 1.06, 09/04 1.10, 01/02 1.07, 04/04 1.07, 08/05 1.08 [facility] Medical History CVA (cerebral vascular accident) Surgical History History of CEA (carotid endarterectomy) Social History Alcohol intake: current Alcohol intake frequency: a few times a month Review of Systems Const All systems reviewed & are unremarkable except as noted in HPI and below Physical Exam Const General: cooperative, comfortable, no acute distress, well developed, alert and awake Nutritional Appearance: overweight Orientation/consciousness: patient oriented x3 Limitations: no limitations HEENT Head: Yes normal to inspection, Yes normocephalic and Yes atraumatic Ears: hearing grossly normal bilaterally Eyes General: appearance normal, both eyes and all related structures Neck Neck: Yes normal visual inspection and Yes trachea midline Chest Chest palpation & inspection: normal inspection of the chest Resp Effort & Inspection: normal respiratory effort and able to speak in complete sentences Cardio Rate: regular rate GI Inspection: Yes normal to inspection General: Yes no CVA tenderness Back/Spine/Pelvis Back: no CVA tenderness Skin General skin exam: no rashes or lesions noted Neuro General: patient oriented x3 Extrem General: Yes normal to inspection Psych Appearance: grossly normal and well kempt Mental Status: mental status grossly normal Speech and movement: Normal speech and movement present and Clear speech present Affect: normal affect Attitude: cooperative Thought process: Normal thought process present Thought content: Normal thought content present Insight: Fair insight present (Psych) Judgement: Fair judgement present (Psych) Assessment & Plan Assessment & Plan (1) Bladder trabeculation: Code(s): N32.89 - Other specified disorders of bladder Category: Medical (2) Hydronephrosis: Code(s): N13.30 - Unspecified hydronephrosis Category: Medical (3) Nocturia: Code(s): R35.1 - Nocturia Category: Medical Plan Unable to obtain urine for urinalysis however PVR 55 mL. Continue Flomax as discussed and prescribed. Patient reports be happy with current voiding parameters on Flomax. He currently denies any bothersome urinary issues or concerns. We discussed pelvic floor exercises to assist with urinary dribbling. Discussed bladder triggers/irritants. Will obtain PSA, BUN, and creatinine in 6 months. Follow-up in 6 months with labs and PVR; or sooner with any issues, concerns, and or questions. Patient Instructions: The patient had an opportunity to ask questions regarding the treatment plan. All questions were answered. Physical exam, labs, and imaging were discussed and reviewed in detail. As well as risks, benefits, and discussion of treatment choices. No major barriers to understanding were identified. The patient expressed understanding and agreement with the above treatment plan. The patient was made aware they should contact our office by phone for worsening of their current condition, the appearance of new symptoms, or with any questions or concerns. Compliance is encouraged with any medications and follow up testing that is ordered. It is a privilege to be allowed the opportunity to participate in? your urological care.? Again, if you have any questions or concerns If you have any questions or concerns please do not hesitate to contact me. The office is [phone]. This note is constructed using voice recognition software. While every effort has been made to ensure accuracy rn informatics errors may have been included. Yours sincerely, FUNMILAYO Toure Coding Level of Care Code Est Pt Level 3 (58978) Complex EM visit Add On G2211 Diagnoses Bladder trabeculation N32.89 Hydronephrosis N13.30 Nocturia R35.1
--- OUTSIDE RECORDS SUMMARY | 2024-09-06 14:24 | XMS_ITS | Clinical Summary ---
Author Organization [facility] it Address [address] [place] [address] Care Team Providers Care Sailmaker Name Role Phone Unavailable Primary Care Provider Unavailabl e Social History Tobacco Use Types Packs/Day Years Used Date Smoking Tobacco: Never Assessed Sex and Gender Information Value Date Recorded Sex Assigned at Not on file Legal Sex Male 7:24 PM EST Gender Identity Not on file Sexual Orientation Not on file Plan of Treatment Health Maintenance Due Date Last Done Comments DTaP,Tdap,and Td Vaccines (1 - Tdap) 1982 Pneumococcal Vaccine: 50+ Ye ars (1 of 1 - PCV) 2013 Zoster Vaccines (1 of 2) 2013 COVID-19 Vaccine (1 - 2023-2 5 season) 2024 Influenza Vaccine (#1) 2024 RSV Immunization Patients 60 + Years Old (1 - 1-dose 75+ series) 2038 HIB Vaccines Aged Out No longer eligi ble based on patient's age to complete this topic HPV Vaccines Aged Out No longer eligi ble based on patient's age to complete this topic Hepatitis A Vaccines Aged Out No long er eligible based on patient's age to complete this topic Hepatitis B Vaccines Aged Out No long er eligible based on patient's age to complete this topic IPV Vaccines Aged Out No longer eligi ble based on patient's age to complete this topic MMR Vaccines Aged Out No longer eligi ble based on patient's age to complete this topic Meningococcal ACWY Vaccine Aged Out N o longer eligible based on patient's age to complete this topic Meningococcal B Vacine Aged Out No lo nger eligible based on patient's age to complete this topic Pneumococcal Vaccine: Pediat rics (0 to 5 Years) and At-Risk Patients (6 to 64 Years) Aged Out No longer eligible b ased on patient's age to complete this topic RSV Immunization Patients Un checo 20 months Aged Out No longer eligible b ased on patient's age to complete this topic Varicella Vaccines Aged Out No longer eligible based on patient's age to complete this topic Advance Directives Documents on File Type Date 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
== END 2024-09-06 11:53 | disposition home or self-care (01) ==
PROVIDERS: PCP Internal Medicine; Visit Provider Nurse Practitioner Family
DX: N32.89 Other specified disorders of bladder (principal); N13.30 Unspecified hydronephrosis; R35.1 Nocturia
CPT/HCPCS: 99213

== ENCOUNTER → 2024-09-06 11:28 | Outpatient (BNVA) | payer OTHER, MEDICAID, SELFPAY | PROVIDERS: PCP Internal Medicine; Visit Provider Nurse Practitioner Family ==

== ENCOUNTER 2024-09-06 11:52 | Outpatient (REF) | payer OTHER, MEDICAID, SELFPAY ==
[2024-09-06 13:41] LABS: PSA,Total (Free>4and<10) 0.66 ng/mL (0.00-4.00)
--- OUTSIDE RECORDS SUMMARY | 2024-09-06 14:56 | XMS_ITS | Clinical Summary ---
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
== END 2024-09-06 11:53 | disposition home or self-care (01) ==
LOC: HO.10HDL 11:52
PROVIDERS: Visit Provider Nurse Practitioner Family
DX: R35.1 Nocturia (principal); Z12.5 Encounter for screening for malignant neoplasm of prostate
CPT/HCPCS: 36415; 84153

== ENCOUNTER 2024-11-27 10:27 | Outpatient (AMB) | payer OTHER, MEDICAID, SELFPAY ==
--- NOTE | 2024-11-27 09:50 | MHC.PC.OV ---
Vital Signs 11/27/24 10:39 Height 5 ft 10 in Weight 274 lb BMI 39.3 BP 118/72 Blood Pressure Location Lt brachial Position Sitting Pulse 86 Pulse Source Pulse Oximeter Temp 97.4 F Temp Source Axillary Pulse Oximetry (%) 98 Oxygen Delivery Method Room Air Intake Visit Reasons: Routine Platemaker Required: No Accompanied by: Self / Same As Patient Allergies No Known Allergies [No Known Allergies*] Allergy (Verified 11/27/24 11:09) Medication List - Last Reconciled 11/27/24 by Diony Kelley MD aspirin 81 mg PO DAILY atorvastatin 40 mg PO DAILY tamsulosin 0.8 mg (2 x 0.4 mg) PO BEDTIME 90 days warfarin 5 mg PO DAILY Tobacco use date assessed: 11/27/24 Dental Screening Dental Screen Date: 11/27/24 Did you have a dental visit in the last 12 months?: Yes Did you have a dental problem in the last 6 months where you did not have access to dental care?: No [facility] Medical History (Updated 11/27/24 @ 11:10 by Diony Kelley MD) Obesity (BMI 30.0-34.9) CVA (cerebral vascular accident) Surgical History History of CEA (carotid endarterectomy) Family History Mother No problems noted. Father No problems noted. Social History Housing: House Alcohol intake: current Alcohol intake frequency: a few times a month Patient Tobacco Use Status: Never used Tobacco e-Cigarette/Vaping Use: Never Used service: No Current occupational status: retired Cognitive needs: No Hearing needs: No Vision needs: No Questionnaire PHQ-9 Over the last 2 weeks, how often have you been bothered by any of the following problems? 1. Little interest or pleasure in doing things: not at all 2. Feeling down, depressed, or hopeless: not at all 3. Trouble falling or staying asleep, or sleeping too much: not at all 4. Feeling tired or having little energy: not at all 5. Poor appetite or overeating: not at all 6. Feeling bad about yourself - or that you are a failure or have let yourself or your family down: not at all 7. Trouble concentrating on things, such as reading the newspaper or watching television: not at all 8. Moving or speaking so slowly that other people could have noticed. Or the opposite - being so fidgety or restless that you have been moving around a lot more than usual: not at all 9. Thoughts that you would be better off or of hurting yourself in some way: not at all Total score: 0 Source: Developed by Drs. Darian Celaya, Aure Lynn, Sesar Cole and colleagues, with an educational tawny from [employer]. Thrive Questionnaire Date Thrive assessed: 11/27/24 I am a: Patient Within the past 12 months, did the food you bought not last and you didn't have the money to get more?: Never true Within the past 12 months, did you worry whether your food would run out before you got money to buy more?: Never true Do you have trouble paying for medicines?: No Do you have trouble getting transportation to medical appointments?: No Do you have trouble paying your heating and electricity bill?: No Do you have trouble taking care of your child, family member or friend?: No Do you have trouble with day-to-day activities such as bathing, preparing meals, shopping, managing finances, etc.?: No Are you currently unemployed and looking for a job?: No Are you interested in more education?: No THRIVE Score: 0 AUDIT C Alcohol Use Questionnaire (AUDIT-C) 1. How often do you have a drink containing alcohol?: Monthly or less 2. How many drinks containing alcohol do you have on a typical day when you are drinking?: 1 or 2 3. How often do you have six or more drinks on one occasion?: Monthly Total Score: 3 KALYN-7 AMB Questionnaire KALYN-7 Date KALYN - 7 assessed: 11/27/24 Feeling nervous, anxious, or on edge: 0 = Not at all Not being able to stop or control worryin = Not at all Worrying too much about different things: 0 = Not at all Trouble relaxin = Not at all Being so restless that it is hard to sit still: 0 = Not at all Becoming easily annoyed or irritable: 0 = Not at all Feeling afraid as if something awful might happen: 0 = Not at all Total KALYN-7 score (0-4 normal; 5-9 mild; 10-14 moderate; 15-21 severe): 0 Source: Developed by Drs. Darian Celaya, Aure Lynn, Sesar Cole and colleagues, with an educational tawny from [employer]. Physical exam (Primary Care) Vital Signs: Last Vital Signs Temp 97.4 F 11/27/24 10:39 Pulse 86 11/27/24 10:39 BP 118/72 11/27/24 10:39 Pulse Ox 98 11/27/24 10:39 Oxygen Delivery Method Room Air 11/27/24 10:39 BMI result Body Mass Index 39.3 Tobacco/Smoking Status: Tobacco use Status Tobacco use date assessed 11/27/24 11/27/24 09:51 Patient Tobacco Use Status Never used Tobacco 11/27/24 09:51 e-Cigarette/Vaping Use Never Used 11/27/24 10:46 PHQ-9: PHQ-9 Score PHQ-9: Total score 0 11/27/24 10:46 Thrive Assessment: Date of Thrive Assessment Date Thrive assessed 11/27/24 11/27/24 10:46 Coding Level of Care Code New Pt Level 4 (92402) Complex EM visit Add On G2211 Diagnoses Obesity (BMI 30.0-34.9) E66.811 CVA (cerebral vascular accident) I63.9 Assessment & Plan Assessment & Plan (1) Obesity (BMI 30.0-34.9): Code(s): E66.811 - Obesity, class 1 Category: Medical Plan: Counselling on weight loss done (2) CVA (cerebral vascular accident): Code(s): I63.9 - Cerebral infarction, unspecified Category: Medical Plan: Condition is stable. Continue current meds Plan History of Present Illness The patient is a 59-year-old male presenting with concerns about ear blockage and right flank pain. He reports an intermittent sensation of ear blockage, uncertain of the consistency of the blockage or specific symptoms associated beyond self-described blockage. He also reports a one-week history of right flank pain, with a noted worsening at night while lying down. The patient did not seek medication for the discomfort initially but mentioned a perception of relief with a muscle relaxant offered for use. The trigger for the pain is unknown as it started one morning without a clear cause. He confirmed that the discomfort is located solely in the right-sided flank area. Social History - Retired as of April 11, 2019 - Lives with others - Does not drive; relies on friends for transportation Review of Systems - Ear, Nose, and Throat: Reports intermittent ear blockage - Gastrointestinal: Reports right flank pain Physical Exam General: Cooperative and healthy appearing Nutritional Appearance: Well nourished Orientation/consciousness: Patient oriented x3 Limitations: No limitations Head: Normal to inspection General: Appearance normal, both eyes and all related structures Neck: Normal visual inspection Chest: Normal palpation of entire chest wall Respiratory: Normal respiratory effort Neurology: Patient oriented x3 Results Plan 1. Ear Blockage - Discuss further evaluation if symptoms persist. 2. Right Flank Pain - Use muscle relaxant if symptomatic relief needed; monitor progression. Discussion Notes During this visit, we discussed the patient's intermittent ear blockage and right flank pain. I mentioned possible conservative management for ear blockage may involve observation and simple interventions if necessary. We talked through the use of muscle relaxants potentially for the tension in the right flank. The patient does not find the pain disturbing during the day, suggesting a conservative management approach and an observation period unless symptoms escalate. Follow-up recommendations will occur if symptoms change or worsen. Patient Instructions - If ear blockage worsens, contact for evaluation - Monitor pain level in the flank - Use muscle relaxant if flank pain develops at night - Follow up if symptoms persist or worsen
[2024-11-27 10:39] VITALS: BP 118/72; PULSE 86; TEMP 36.3; O2SAT 98; BMI 39.3
--- OUTSIDE RECORDS SUMMARY | 2024-11-27 11:04 | XMS_ITS | Clinical Summary ---
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
== END 2024-11-27 11:12 | disposition home or self-care (01) ==
LOC: HO.HMCHD 10:28
PROVIDERS: PCP Internal Medicine; Visit Provider Internal Medicine
DX: E66.811 Obesity, class 1 (principal); I63.9 Cerebral infarction, unspecified

== ENCOUNTER → 2024-11-27 10:27 | Outpatient (BNVA) | payer OTHER, MEDICAID, SELFPAY | PROVIDERS: PCP Internal Medicine; Visit Provider Internal Medicine ==

== ENCOUNTER 2025-03-06 11:36 | Outpatient (AMB) | payer OTHER, MEDICAID, SELFPAY ==
--- NOTE | 2025-03-06 11:38 | A.OFFVIS_ITS ---
Intake Visit Reasons: 6m/PSA/PVR Intake Note: Patient is present for 6M/PSA/PVR Urology Medication:TAMSULOSIN Antibiotic Allergy:NONE Blood Thinner:ASPIRIN,WARFARIN TODAY'S PVR:0ML'S Biofuels Operations Manager Required: No Allergies No Known Allergies (No Known Allergies*) Allergy (Verified 03/06/25 12:02) Medication List - Last Reconciled 03/06/25 by REBECA Toure- aspirin 81 mg PO DAILY atorvastatin 40 mg PO DAILY terazosin 5 mg PO BEDTIME 30 days warfarin 5 mg PO DAILY HPI Comments Details: Yani is a 60 year old male patient of Dr. Taylor. He has a PMH of CVA. He presents to the office today as for follow-up of his nocturia. In d iscussion with the patient today reports to be doing and feeling well. He reports feeling over the last 2 months Flomax has not been as helpful as it previously had been. He reports noting episodes of nocturia. We did discussed potential causes of nocturia as well as further treatment options and risks and benefits of these treatment options. Unable to obtain urinalysis for review today as patient unable to void and PVR 0 mL. When asked he denies any signs or symptoms of sleep apnea He reports throughout the day he feels no bothersome urinary issues or concerns however at night experiences nocturia up to 5 times. Patient with a previous history of moderate hydronephrosis and has undergone further workup with retroperitoneal ultrasound followed by nuclear renal imaging. These results are as follows: Nuclear renal scan 05/04 bilateral kidneys with normal perfusion and function. Mild hydronephrosis is present, predominantly in the calyx see system, but there is no outflow obstruction. The relative function of the 2 kidneys based on a 2- 3 minute image are left 44% and right 56%. Retroperitoneal ultrasound 03/04 noting bilateral kidneys with moderate hydronephrosis. No obstructing renal calculi. Limited visualization. 5.5 left renal lower pole cyst with benign features that requires no imaging follow-up per radiology report. The bladder is well distended. Mild diffuse trabe culations and irregularity of the bladder wall. Bilateral ureteral jets are demonstrated. Pre void bladder volume is approximately 140 mL. Postvoid bladder volume is approximately 30 mL. He denies urinary urgency, urinary frequency, incontinence, hematuria, dysuria, foul smelling urine, changes to urinary stream, flank pain, fever, and or chills. He does report occasional urinary dribbling. He otherwise offers no other issues or concerns at this time. We did discussed obtaining BUN and creatinine as recommended during last office visit and importance in doing so. In review of patient's chart it appears PSAs, BUN, and creatinine are as follows: PSAs: 04/29 0.4, 04/02 0.7, 05/03 0.6, 04/04 0.7, 03/05 0.7 BUN: 04/29 15, 10/29 16, 09/01 16, 07/01 12, 09/30 13, 12/31 17, 11/01 14, 05/03 18, 09/04 14, 01/02 11, 04/04 13, 08/05 13 Creatinine:04/29 0.9, 10/29 1.07, 06/30 0.99, 09/30 1.19, 04/02 1.01, 11/01 1.06, 05/03 1.06, 09/04 1.10, 01/02 1.07, 04/04 1.07, 08/05 1.08 [facility] Medical History Obesity (BMI 30.0-34.9) CVA (cerebral vascular accident) Surgical History History of CEA (carotid endarterectomy) Family History Mother No problems noted. Father No problems noted. Social History Housing: House Alcohol intake: current Alcohol intake frequency: a few times a month Patient Tobacco Use Status: Never used Tobacco e-Cigarette/Vaping Use: Never Used service: No Current occupational status: retired Cognitive needs: No Hearing needs: No Vision needs: No Review of Systems Const All systems reviewed & are unremarkable except as noted in HPI and below Physical Exam Const General: cooperative, comfortable, no acute distress, well developed, alert and awake Nutritional Appearance: overweight Orientation/consciousness: patient oriented x3 Limitations: no limitations HEENT Head: Yes normal to inspection, Yes normocephalic and Yes atraumatic Ears: hearing grossly normal bilaterally Eyes General: appearance normal, both eyes and all related structures Neck Neck: Yes normal visual inspection and Yes trachea midline Chest Chest palpation & inspection: normal inspection of the chest Resp Effort & Inspection: normal respiratory effort and able to speak in complete sentences Cardio Rate: regular rate GI Inspection: Yes normal to inspection General: Yes no CVA tenderness Back/Spine/Pelvis Back: no CVA tenderness Skin General skin exam: no rashes or lesions noted Neuro General: patient oriented x3 Extrem General: Yes normal to inspection Psych Appearance: grossly normal and well kempt Mental Status: mental status grossly normal Speech and movement: Normal speech and movement present and Clear speech present Affect: normal affect Attitude: cooperative Thought process: Normal thought process present Thought content: Normal thought content present Insight: Fair insight present (Psych) Judgement: Fair judgement present (Psych) Office Procedures Post Void Residual Post Residual Void Post Void Residual (PVR): 0 [id number] Void Residual by ultrasound Assessment & Plan Assessment & Plan (1) Hydronephrosis: Code(s): N13.30 - Unspecified hydronephrosis Category: Medical (2) Nocturia: Code(s): R35.1 - Nocturia Category: Medical (3) Bladder trabeculation: Code(s): N32.89 - Other specified disorders of bladder Category: Medical Plan Unable to obtain urine for urinalysis as patient unable to void however PVR 0 mL. We did discuss importance of management in pre-diabetes for improvement in lower urinary tract symptoms as well as overall health and well-being. Stop Flomax. Start terazosin as discussed and prescribed. We did discussed the importance of obtaining BUN and creatinine as planned. We discussed the importance of limiting fluids 2-3 hours prior to bed to decrease episodes of nocturia. All questions were answered. Follow-up in 1-3 months with PVR in labs; or sooner with any issues, concerns, and or questions. Orders: Orders Blood Urea Nitrogen Today R39.15 - Urgency of urination Creatinine Today R39.15 - Urgency of urination Medications: New terazosin 5 mg PO BEDTIME 30 caps 3RF 30 days N40.1 - Benign prostatic hyperplasia with lower urinary tract symptoms, R35.0 - Frequency of micturition Discontinued tamsulosin Discontinued Reason: Doctor's Order 0.8 mg (2 x 0.4 mg) PO BEDTIME 90 days 180 caps 3RF N40.1 - Benign prostatic hyperplasia with lower urinary tract symptoms, R35.1 - Nocturia Patient Instructions: The patient had an opportunity to ask questions regarding the treatment plan. All questions were answered. Physical exam, labs, and imaging were discussed and reviewed in detail. As well as risks, benefits, and discussion of treatment choices. No major barriers to understanding were identified. The patient expressed understanding and agreement with the above treatment plan. The patient was made aware they should contact our office by phone for worsening of their current condition, the appearance of new symptoms, or with any questions or concerns. Compliance is encouraged with any medications and follow up testing that is ordered. It is a privilege to be allowed the opportunity to participate in? your urological care.? Again, if you have any questions or concerns If you have any questions or concerns please do not hesitate to contact me. The office is [phone]. This note is constructed using voice recognition software. While every effort has been made to ensure accuracy inside sales supervisor errors may have been included. Yours sincerely, FUNMILAYO Toure Coding Level of Care Code Est Pt Level 4 (90809) Complex EM visit Add On G2211 Diagnoses Hydronephrosis N13.30 Nocturia R35.1 Bladder trabeculation N32.89 CPT Codes Post Residual Void - PVR CPT Code: 10115-Tniq Void Residual by ultrasound ([id number])
--- OUTSIDE RECORDS SUMMARY | 2025-03-06 12:32 | XMS_ITS | Clinical Summary ---
Author Organization 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
== END 2025-03-06 12:03 | disposition home or self-care (01) ==
LOC: HO.HUSH 11:37
PROVIDERS: PCP Internal Medicine; Visit Provider Nurse Practitioner Family
DX: N13.30 Unspecified hydronephrosis (principal); R35.1 Nocturia; N32.89 Other specified disorders of bladder
CPT/HCPCS: 99214

== ENCOUNTER → 2025-03-06 11:36 | Outpatient (BNVA) | payer OTHER, MEDICAID, SELFPAY | PROVIDERS: PCP Internal Medicine; Visit Provider Nurse Practitioner Family | DX: R35.1 Nocturia (principal); N13.30 Unspecified hydronephrosis; N32.89 Other specified disorders of bladder | CPT/HCPCS: 51798 ==

== ENCOUNTER 2025-05-14 09:31 | Outpatient (AMB) | payer OTHER, MEDICAID, SELFPAY ==
--- NOTE | 2025-05-14 09:43 | MHC.OFFVIS ---
Intake Visit Reasons: Follow up/PVR Intake Note: Patient is present for a follow up/PVR Urology Medication:Terazosin Antibiotic Allergy:NONE Blood Thinner:ASPIRIN,WARFARIN PVR:0ML Cafe Manager Required: No Allergies No Known Allergies (No Known Allergies*) Allergy (Verified 05/14/25 09:43) Medication List - Last Reconciled 05/14/25 by Jorden Almazan MD aspirin 81 mg PO DAILY atorvastatin 40 mg PO DAILY terazosin 5 mg PO BEDTIME 30 days warfarin 5 mg PO DAILY HPI Comments Details: 05/14/25--Messi is a 60 male who is followed for BPH symptoms, history of stroke. PSA 09/06/2024 is 0.66. History of Present Illness The patient is a 60-year-old male presenting with Benign Prostatic Hyperplasia (BPH). He is currently on terazosin 5 mg at bedtime, which has led to some improvement in symptoms, allowing him to sleep for three to five hours before needing to urinate, typically getting up one or two times per night. The patient's past medical history includes a Cerebrovascular Accident (CVA). A PSA test conducted earlier this year was normal, indicating a healthy prostate status. Results - PSA 09/06/2024 is 0.66. Plan 1. Benign Prostatic Hyperplasia (Bph) - Continue terazosin 5 mg at bedtime. - Follow-up with nurse practitioner in 9 months. - Repeat PSA test 2 weeks prior to the next appointment. 2. H/O--Cerebrovascular Accident (Cva) - CoMorbidity 03/06/25--Yani is a 60 year old male patient of Dr. Taylor. He has a PMH of CVA. He presents to the office today as for follow-up of his nocturia. In discussion with the patient today reports to be doing and feeling well. He reports feeling over the last 2 months Flomax has not been as helpful as it previously had been. He reports noting episodes of nocturia. We did discussed potential causes of nocturia as well as further treatment options and risks and benefits of these treatment options. Unable to obtain urinalysis for review today as patient unable to void and PVR 0 mL. When asked he denies any signs or symptoms of sleep apnea He reports throughout the day he feels no bothersome urinary issues or concerns however at night experiences nocturia up to 5 times. Patient with a previous history of moderate hydronephrosis and has undergone further workup with retroperitoneal ultrasound followed by nuclear renal imaging. These results are as follows: Nuclear renal scan 05/04 bilateral kidneys with normal perfusion and function. Mild hydronephrosis is present, predominantly in the calyx see system, but there is no outflow obstruction. The relative function of the 2 kidneys based on a 2-3 minute image are left 44% and right 56%. Retroperitoneal ultrasound 03/04 noting bilateral kidneys with moderate hydronephrosis. No obstructing renal calculi. Limited visualization. 5.5 left renal lower pole cyst with benign features that requires no imaging follow-up per radiology report. The bladder is well distended. Mild diffuse trabeculations and irregularity of the bladder wall. Bilateral ureteral jets are demonstrated. Pre void bladder volume is approximately 140 mL. Postvoid bladder volume is approximately 30 mL. He denies urinary urgency, urinary frequency, incontinence, hematuria, dysuria, foul smelling urine, changes to urinary stream, flank pain, fever, and or chills. He does report occasional urinary dribbling. He otherwise offers no other issues or concerns at this time. We did discussed obtaining BUN and creatinine as recommended during last office visit and importance in doing so. In review of patient's chart it appears PSAs, BUN, and creatinine are as follows: PSAs: 04/29 0.4, 04/02 0.7, 05/03 0.6, 04/04 0.7, 03/05 0.7 BUN: 04/29 15, 10/29 16, 09/01 16, 07/01 12, 09/30 13, 12/31 17, 11/01 14, 05/03 18, 09/04 14, 01/02 11, 04/04 13, 08/05 13 Creatinine:04/29 0.9, 10/29 1.07, 06/30 0.99, 09/30 1.19, 04/02 1.01, 11/01 1.06, 05/03 1.06, 09/04 1.10, 01/02 1.07, 04/04 1.07, 08/05 1.08 [facility] Medical History Obesity (BMI 30.0-34.9) CVA (cerebral vascular accident) Surgical History History of CEA (carotid endarterectomy) Family History Mother No problems noted. Father No problems noted. Social History Housing: House Alcohol intake: current Alcohol intake frequency: a few times a month Patient Tobacco Use Status: Never used Tobacco e-Cigarette/Vaping Use: Never Used service: No Current occupational status: retired Cognitive needs: No Hearing needs: No Vision needs: No Review of Systems Const All systems reviewed & are unremarkable except as noted in HPI and below Reports no additional complaints Eyes Reports no additional complaints ENT Reports no additional complaints Card Reports no additional complaints Resp Reports no additional complaints GI Reports no additional complaints Reports as per HPI Musc Reports no additional complaints Skin/Breast Reports system reviewed and no additional complaints, except as documented Neuro Reports no additional complaints Psych Reports no additional complaints Endo Reports no additional complaints Adi/Lymph Reports no additional complaints Aller/Immun Reports no additional complaints Results Reviewed Results Reviewed: Date of Service: 04/11/24 EXAMINATION: RENAL DYNAMIC IMAGING STUDY WITH LASIX FINDINGS: Initial rapid sequence images show prompt and bilaterally symmetrical flow to the kidneys. Subsequent sequential static images obtained up to 30 minutes show good concentration bilaterally. The kidneys are approximately equal in size. There is good concentration bilaterally. Excretory function is visualized by 4 minutes postinjection bilaterally. Some urinary bladder activity is visualized by 8 minutes post injection and this gradually increases in intensity. At 30 minutes post injection there is good visualization of activity in the urinary bladder and mild dilatation retention in both kidneys predominantly in the calyces. Following Lasix administration, there is prompt washout of the retained activity in both renal collecting systems. When the study was terminated, particularly because of the patient's urgency to void, a full urinary bladder is visualized and there is only minimal retention in upper pole calyx on the left and no significant retention in the right renal collecting system. The T-1/2 washout times following Lasix administration are: Left 6 minutes and right 4 minutes. The relative function of the two kidneys based on the 2-3 minute images are: Left 44% and right 56%. IMPRESSION: LEFT KIDNEY: Normal perfusion and function. Mild hydronephrosis is present, predominantly in the calyceal system, but there is no outflow obstruction. RIGHT KIDNEY: Normal perfusion and function. Mild hydronephrosis is present, predominantly in the calyceal system, but there is no evidence of obstruction. Assessment & Plan Assessment & Plan (1) Nocturia: Code(s): R35.1 - Nocturia Category: Medical (2) Screening PSA (prostate specific antigen): Code(s): Z12.5 - Encounter for screening for malignant neoplasm of prostate Category: Medical Plan Plan 1. Benign Prostatic Hyperplasia (Bph) - Continue terazosin 5 mg at bedtime. - Follow-up with nurse practitioner in 9 months. - Repeat PSA test 2 weeks prior to the next appointment. 2. H/O--Cerebrovascular Accident (Cva) - CoMorbidity Orders: Orders PSA,Total (Free>4and<10) 8 Months R35.1 - Nocturia, Z12.5 - Encounter for screening for malignant neoplasm of prostate Medications: Refilled terazosin 5 mg PO BEDTIME 30 caps 7RF 30 days N40.1 - Benign prostatic hyperplasia with lower urinary tract symptoms, R35.0 - Frequency of micturition Patient Instructions: The patient had an opportunity to ask questions regarding treatment plan. The patient expressed understanding and agreement with the above treatment plan. The patient is aware they should contact our office by phone for worsening of their current condition or the appearance of new symptoms. Compliance is encouraged with any medications and followup testing that is ordered. It is a privilege to be allowed the opportunity to participate in the urologic care of your patient. If you have any questions or concerns regarding treatment for the above conditions please do not hesitate to contact me. The office telephone contact is [phone]. This note is constructed in part using voice recognition software. While every effort has been made to ensure accuracy respiratory equipment assistant errors may have been included. Yours sincerely, Jorden Almazan MD Scribe Plan - Not visible on output: Patient was informed and verbally consented to the use of an ambient scribe for clinic note documentation during this visit. Coding Level of Care Code Est Pt Level 3 (89835) Diagnoses Nocturia R35.1 Screening PSA (prostate specific antigen) Z12.5
--- OUTSIDE RECORDS SUMMARY | 2025-05-14 10:49 | XMS_ITS | Clinical Summary ---
Author Organization 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
== END 2025-05-14 10:18 | disposition home or self-care (01) ==
LOC: HO.HUSH 09:31
PROVIDERS: PCP Internal Medicine; Visit Provider Urology
DX: R35.1 Nocturia (principal); Z12.5 Encounter for screening for malignant neoplasm of prostate
CPT/HCPCS: 99213

== ENCOUNTER → 2025-05-14 09:31 | Outpatient (BNVA) | payer OTHER, MEDICAID, SELFPAY | PROVIDERS: PCP Internal Medicine; Visit Provider Urology | DX: R35.1 Nocturia (principal); N32.89 Other specified disorders of bladder; Z12.5 Encounter for screening for malignant neoplasm of prostate | CPT/HCPCS: 51798 ==

== ENCOUNTER 2025-05-28 12:24 | Outpatient (REF) | payer OTHER, MEDICAID, SELFPAY | END 2025-05-28 12:25 | disposition home or self-care (01) | LOC: HO.LAB 12:24 | PROVIDERS: PCP Internal Medicine; Visit Provider Student in an Organized Health Care Education/Training Program | DX: R73.03 Prediabetes (principal); I48.91 Unspecified atrial fibrillation; R25.2 Cramp and spasm; E78.5 Hyperlipidemia, unspecified; Z28.21 Immunization not carried out because of patient refusal; Z79.01 Long term (current) use of anticoagulants; Z86.73 Personal history of transient ischemic attack (TIA), and cerebral infarction without residual deficits | CPT/HCPCS: 36415; 83036; 90471; 96127 ==

== ENCOUNTER 2025-05-28 12:24 | Outpatient (AMB) | payer OTHER, MEDICAID, SELFPAY ==
[2025-05-28 12:49] VITALS: BP 110/78; PULSE 85; TEMP 36.4; O2SAT 97; BMI 39.2
--- NOTE | 2025-05-28 12:49 | MHC.PC.OV ---
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 He has a history of two strokes, which occurred at home. Following these events, he was started on warfarin approximately 4-5 years ago, although he is uncertain of the specific indication and does not recall having an abnormal heart rhythm. He reports residual effects from the stroke in his left leg, which he feels has recovered to about 90% function. The patient reports experiencing severe, painful muscle cramps in his leg almost every night, particularly when he goes to bed. He notes that stretching alleviates the cramps. Review of lab work from July of this year revealed an A1c of 6.3 and subsequently 6.2, indicating prediabetes, of which the patient was not previously aware. His cholesterol, checked in March, showed a total cholesterol of 108 and an LDL of 33 while taking atorvastatin 40 mg. He reports taking all his medications daily. The patient is aware he is due for colorectal cancer screening and last completed a Cologuard test about 2.5 years ago. He denies any history of smoking. Medical History: - History of Cerebrovascular Accident (2 episodes) - Prediabetes - Hypercholesterolemia - Benign Prostatic Hyperplasia Medications: - Aspirin for heart disease prevention - Atorvastatin 40 mg for hypercholesterolemia - Terazosin for prostate - Warfarin, likely for secondary stroke prevention Diagnostic Results: - Labs: - A1c: 6.3% and 6.2% (July of current year) - Total Cholesterol: 108 mg/dL (March 2024) - LDL Cholesterol: 33 mg/dL (March 2024) - Liver enzymes: noted as good - Screening: - Cologuard test: performed 2.5 years ago Social History - Tobacco Use: Patient denies ever smoking. - Medication Adherence: Reports taking all prescribed medications every day without fail. [facility], [facility] Medical History (Updated 05/28/25 @ 13:12 by Claude Sullivan MD) Muscle cramps Hyperlipidemia Prediabetes Obesity (BMI 30.0-34.9) CVA (cerebral vascular accident) Surgical History History of CEA (carotid endarterectomy) Family History Mother No problems noted. Father No problems noted. Social History Housing: House Alcohol intake: current Alcohol intake frequency: a few times a month Patient Tobacco Use Status: Never used Tobacco e-Cigarette/Vaping Use: Never Used service: No Current occupational status: retired Cognitive needs: No Hearing needs: No Vision needs: No Questionnaire PHQ-9 Over the last 2 weeks, how often have you been bothered by any of the following problems? 1. Little interest or pleasure in doing things: not at all 2. Feeling down, depressed, or hopeless: not at all 3. Trouble falling or staying asleep, or sleeping too much: not at all 4. Feeling tired or having little energy: not at all 5. Poor appetite or overeating: not at all 6. Feeling bad about yourself - or that you are a failure or have let yourself or your family down: not at all 7. Trouble concentrating on things, such as reading the newspaper or watching television: not at all 8. Moving or speaking so slowly that other people could have noticed. Or the opposite - being so fidgety or restless that you have been moving around a lot more than usual: not at all 9. Thoughts that you would be better off or of hurting yourself in some way: not at all Total score: 0 Depression Screening Interpretation: Negative Depression Screening Done: Yes Source: Developed by Drs. Darian Celaya, Aure Lynn, Sesar Cole and colleagues, with an educational tawny from [employer]. Thrive Questionnaire Date Thrive assessed: 05/28/25 I am a: Patient Within the past 12 months, did the food you bought not last and you didn't have the money to get more?: Never true Within the past 12 months, did you worry whether your food would run out before you got money to buy more?: Never true Do you have trouble paying for medicines?: No Do you have trouble getting transportation to medical appointments?: No Do you have trouble paying your heating and electricity bill?: No Do you have trouble taking care of your child, family member or friend?: No Do you have trouble with day-to-day activities such as bathing, preparing meals, shopping, managing finances, etc.?: No Are you currently unemployed and looking for a job?: No Are you interested in more education?: No THRIVE Score: 0 AUDIT C Alcohol Use Questionnaire (AUDIT-C) 1. How often do you have a drink containing alcohol?: Monthly or less 2. How many drinks containing alcohol do you have on a typical day when you are drinking?: 1 or 2 3. How often do you have six or more drinks on one occasion?: Monthly Total Score: 3 KALYN-7 AMB Questionnaire KALYN-7 Date KALYN - 7 assessed: 05/28/25 Feeling nervous, anxious, or on edge: 0 = Not at all Not being able to stop or control worryin = Not at all Worrying too much about different things: 0 = Not at all Trouble relaxin = Not at all Being so restless that it is hard to sit still: 0 = Not at all Becoming easily annoyed or irritable: 0 = Not at all Feeling afraid as if something awful might happen: 0 = Not at all Total KALYN-7 score (0-4 normal; 5-9 mild; 10-14 moderate; 15-21 severe): 0 Source: Developed by Drs. Darian Celaya, Aure Lynn, Sesar Cole and colleagues, with an educational tawny from [employer]. Review of Systems Narrative Review of Systems - Constitutional: Patient reports feeling good on some days but not others, but generally feels 100% otherwise. - Musculoskeletal: Reports severe, painful cramps in his leg almost every night. - Endocrine: Denies knowledge of being prediabetic. - Neurological: Reports residual effects in his left leg post-stroke, now at about 90% function. - Cardiovascular: Denies any history of abnormal heart rhythms. All systems reviewed & are unremarkable except as reviewed in HPI and above Physical exam (Primary Care) Vital Signs: Last Vital Signs Temp 97.6 F 05/28/25 12:49 Pulse 85 05/28/25 12:49 BP 110/78 05/28/25 12:49 Pulse Ox 97 05/28/25 12:49 Oxygen Delivery Method Room Air 05/28/25 12:49 BMI result Body Mass Index 39.2 Tobacco/Smoking Status: Tobacco use Status Tobacco use date assessed 05/28/25 05/28/25 12:50 Patient Tobacco Use Status Never used Tobacco 05/28/25 12:50 e-Cigarette/Vaping Use Never Used 05/28/25 12:50 PHQ-9: PHQ-9 Score PHQ-9: Total score 0 05/28/25 12:50 Depression Screening Interpretation: Negative Thrive Assessment: Date of Thrive Assessment Date Thrive assessed 05/28/25 05/28/25 12:50 Narrative Physical Exam General: +Alert and oriented, Well nourished, No acute distress. Eye: Pupils are equal, round and reactive to light, Intact accommodation, Extraocular movements are intact, Normal conjunctiva, Vision unchanged. HENT: Normocephalic, Atraumatic, Tympanic membranes are clear, Normal hearing, Oral mucosa is moist, No pharyngeal erythema, Ear canals patent. Respiratory: Lungs CTA bilaterally, No wheeze, Respirations are non-labored. Cardiovascular: Regular rate, Regular rhythm, S1 auscultated, S2 auscultated, No murmur, Good pulses equal in all extremities, Normal peripheral perfusion, No edema. Gastrointestinal: Soft, Non-tender, Non-distended, Normal bowel sounds, No organomegaly. Musculoskeletal: Normal range of motion, Normal strength, No tenderness, No swelling, No deformity, Normal gait. Integumentary: Warm, Dry, [place], Intact. Neurologic: Alert, Oriented, Normal sensory, Normal motor function, No focal defects, Cranial Nerves II-XII are grossly intact, Normal deep tendon reflexes. Psychiatric: Cooperative, Appropriate mood & affect, Normal judgment. Office Procedures Flu Questionnaire Does the patient have a severe egg allergy?: No Does the patient have severe life threatening allergies?: No Does the patient have a fever or illness today?: No Has the patient ever had Guillain-[place] Syndrome?: No Has the patient ever had any past reaction to a flu shot?: No Immunizations Fluarix [id number] (PF) 45 mcg (15 mcg x 3)/0.5 mL IM syringe Performing Provider: Claude Sullivan MD Performing Location[place] [facility] Documented (not given) by: Latoya Evans CMA on 05/28/25 12:57 Reason Not Given: Patient Refused Coding Level of Care Code Est Pt Level 4 (24107) Complex EM visit Add On G2211 Diagnoses Cerebrovascular accident (CVA), unspecified mechanism I63.9 CVA mechanism: unspecified Prediabetes R73.03 Hyperlipidemia, unspecified hyperlipidemia type E78.5 Hyperlipidemia type: unspecified Muscle cramps R25.2 Assessment & Plan Assessment & Plan (1) CVA (cerebral vascular accident): Comment: - The patient has a history of two strokes and is on warfarin for secondary prevention. - Management of his other risk factors, particularly prediabetes, is crucial to prevent recurrence. Code(s): I63.9 - Cerebral infarction, unspecified Category: Medical Qualifiers: CVA mechanism: unspecified Qualified Code(s): I63.9 - Cerebral infarction, unspecified (2) Prediabetes: Comment: - The patient's A1c was 6.2-6.3 over a year ago. - An A1c will be ordered for today to assess current glycemic status. - If it is elevated, medications will be initiated via phone call. - A follow-up visit is scheduled in 3 months with repeat labs one week prior to monitor the condition. Code(s): R73.03 - Prediabetes Category: Medical (3) Hyperlipidemia: Comment: - The patient is on atorvastatin 40 mg with a recent LDL of 33 mg/dL. - The current dose may be higher than necessary and will be re-evaluated at the 3-month follow-up appointment. Code(s): E78.5 - Hyperlipidemia, unspecified Category: Medical Qualifiers: Hyperlipidemia type: unspecified Qualified Code(s): E78.5 - Hyperlipidemia, unspecified (4) Muscle cramps: Comment: - The patient reports frequent nocturnal leg cramps. - He was counseled on conservative management, including proper hydration, ensuring adequate dietary electrolyte intake, and stretching before bed. Code(s): R25.2 - Cramp and spasm Category: Medical Plan: Health Maintenance: - Colorectal Cancer Screening: A Cologuard test will be ordered as the patient is due for screening. - Diabetes Screening: An A1c test is ordered for today to assess for progression from prediabetes. - Stroke Prevention: Counseled on the importance of managing blood sugar to reduce the risk of future strokes. - Lifestyle Counseling: Advised on proper diet, hydration, and stretching to manage leg cramps. - Follow-up: A follow-up appointment for a physical is scheduled for 3 months, with repeat lab work to be completed one week prior. Patient was informed and verbally consented to the use of an ambient scribe for clinic note documentation during this visit. Vital signs reviewed. Comprehensive history, review of systems, and physical exam completed. Medications, allergies, and problem list reviewed and updated. Counseling provided on nutrition, regular exercise, sleep hygiene, and moderation of alcohol use. Discussed age-appropriate screenings (mammogram, colonoscopy, Pap, bone density) and immunizations (flu, COVID, shingles, Tdap). Screened for depression, fall risk, and home safety; no current concerns. Discussed stress management, dental and vision care, and importance of ongoing preventive follow-up. Routine labs ordered for metabolic and lipid screening. Patient educated on healthy lifestyle and agrees with the plan. Plan I discussed with the patient that his hemoglobin A1c from the previous year was in the prediabetic range, and he was unaware of this. I explained that given his history of two strokes, controlling his blood sugar is critical for preventing future events. I outlined the plan to check his A1c today, and if it is elevated, I will call him to start medication. We agreed on a follow-up visit in three months, with repeat labs done the week prior, so we can review the results together and adjust the plan as needed. I advised him to manage his nocturnal leg cramps by staying hydrated, maintaining a good diet, and stretching before bed. I also informed him that I will be ordering a Cologuard test for his colorectal cancer screening. The patient understood and agreed with this plan, which I emphasized is for his safety and betterment. Orders: Orders Influenza [id number] Immunization Today Z23 - Encounter for immunization Comprehensive Met. Panel 3 Months Z00.00 - Encounter for general adult medical examination without abnormal findings HIV Ab/Ag 3 Months Z00.00 - Encounter for general adult medical examination without abnormal findings Microalbumin, Random (w Creat) 3 Months Z00.00 - Encounter for general adult medical examination without abnormal findings Vitamin D 25-OH Total 3 Months Z00.00 - Encounter for general adult medical examination without abnormal findings Hemoglobin A1c Today R73.03 - Prediabetes Complete Blood Count Auto Diff 3 Months Z00.00 - Encounter for general adult medical examination without abnormal findings Hemoglobin A1c 3 Months Z00.00 - Encounter for general adult medical examination without abnormal findings Hepatitis A,B,C Profile 3 Months Z00.00 - Encounter for general adult medical examination without abnormal findings Lipid Panel 3 Months Z00.00 - Encounter for general adult medical examination without abnormal findings Syphilis Screen 3 Months Z00.00 - Encounter for general adult medical examination without abnormal findings TSH reflex Free T4 3 Months Z00.00 - Encounter for general adult medical examination without abnormal findings Referrals Cologuard Test Z12.11 - Encounter for screening for malignant neoplasm of colon Patient Instructions: - Please go to the hospital lab across the street today to have your blood drawn to check your blood sugar levels. - If your blood sugar is high, I will call you to start a new medication. - Continue taking all your current medications as prescribed every day. - To help with leg cramps at night, make sure to drink plenty of fluids, eat a healthy diet, and stretch your legs before bed. - A Cologuard test kit (a stool test) will be ordered for you for colon cancer screening. Please complete it when it arrives. - Please go to the supervisor front to schedule a follow-up appointment for a physical in three months. - One week before that next appointment, you will need to go to the lab to have your blood work done again.
== END 2025-05-28 13:13 | disposition home or self-care (01) ==
PROVIDERS: PCP Internal Medicine; Visit Provider Student in an Organized Health Care Education/Training Program
DX: I63.9 Cerebral infarction, unspecified (principal); R73.03 Prediabetes; E78.5 Hyperlipidemia, unspecified; R25.2 Cramp and spasm; Z23 Encounter for immunization

== ENCOUNTER 2025-05-31 10:06 | Outpatient (REF) | payer MEDICARE, MEDICAID, SELFPAY ==
[2025-05-31 10:32] LABS: INTERNATIONAL NORM RATIO 1.1 (0.9-1.1); Prothrombin Time 13.3 SEC (11.2-13.5)
--- OUTSIDE RECORDS SUMMARY | 2025-05-31 14:52 | XMS_ITS | Clinical Summary ---
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
== END 2025-05-31 10:07 | disposition home or self-care (01) ==
LOC: HO.LAB 10:06
PROVIDERS: PCP Student in an Organized Health Care Education/Training Program; Visit Provider Student in an Organized Health Care Education/Training Program
DX: I48.0 Paroxysmal atrial fibrillation (principal)
CPT/HCPCS: 36415; 85610